=== PATIENT | male | born 1995 | race Caucasian/White ===

== ENCOUNTER 2016-11-16 11:00 | Emergency (ER) | payer BC ==
--- NOTE | 2016-11-16 12:51 | REP ---
5 view left ankle series 11/16/2016 Indication: Trauma Comparison: None Findings: Mild soft tissue swelling overlies the left lateral malleolus. There is no acute fracture or dislocation in the left ankle. There is no visualized joint effusion. Alignment is anatomic. Impression: mild soft tissue swelling overlies lateral malleolus. No ankle fracture or dislocation . Signed by Shante Ortiz MD 11/16/2016 12:43 P
--- NOTE | 2016-11-16 13:03 | EDDOCDS ---
Physician Documentation [facility] Name: Jackson Jaimes Age: 20 yrs Sex: Male : 1995 Arrival Date: 11/16/2016 Time: 11:00 Bed Triage 2 Private MD: Batool Grimes Disposition: 11/16/16 12:50 Discharged to Home/Self Care. Impression: Contusion of right hand, Sprain of unspecified ligament of left ankle. - Condition is Stable. - Discharge Instructions: Elastic Bandage and RICE, Ankle Sprain, Jiro-bd-Lwts, Hand Contusion, Ptgz-dy-Fbhp, Stirrup Ankle Brace, Rwmh-gl-Yajd. - Medication Reconciliation, Local Pharmacy Hours form. - Follow up: Orthopaedics, [facility]; When: Call to arrange an appointment; Reason: Further diagnostic work-up, Recheck today's complaints, Continuance of care. - Problem is new. - Symptoms are unchanged. Historical: - Allergies: no known allergies; - Home Meds: 1. none - PMHx: none; - PSHx: none; - Social history: Smoking status: Patient states former smoker of tobacco. No barriers to communication noted, The patient speaks fluent Romansh, Speaks appropriately for age. - Family history: Not pertinent. - : The pt / caregiver states he / she is not on anticoagulants. Home medication list is obtained from the patient. - Exposure Risk Screening:: None identified. Vital Signs: 11/16 11:06 BP 158 / 89; Pulse 66; Resp 18; Temp 97.2; Pulse Ox 99% ; Weight 99.79 kg / 220 lbs; elp Height 6 ft. 1 in. (185.42 cm); Pain 7/10; 11:06 Body Mass Index 29.03 (99.79 kg, 185.42 cm) elp MDM: 11:13 Hand, Complete Ordered. EDMS 11:13 Ankle, Complete Ordered. EDMS 11:23 Financial registration complete. pm4 12:00 [facility] Payment Agreement was scanned into [employer] and attached to record. pm4 12:52 Pasquale Wrap ordered. btw 12:52 Apply Air Cast to Patient. ordered. btw Signatures: Dispatcher [employer] EDElizabeth Paris RN RN srm Wolfenden, Brandon, PA PA btw Antonio Slater, Reg Reg pm4 The chart was reviewed and I authenticate all verbal orders and agree with the evaluation and treatment provided.Attachments: 12:00 [facility] Payment Agreement pm4 MTDD
--- NOTE | 2016-11-16 13:03 | EDDOCDS ---
Nurse's Notes [facility] Name: Jackson Jaimes Age: 20 yrs Sex: Male : 1995 Arrival Date: 11/16/2016 Time: 11:00 Bed Triage 2 Private MD: Batool Grimes Diagnosis: Contusion of right hand;Sprain of unspecified ligament of left ankle Presentation: 11/16 11:03 Presenting complaint: Patient states: fell last night injuring left ankle and right srm wrist. pain worsened this am. Adult Sepsis Screening: The patient does not have new or worsening altered mentation. Patient's respiratory rate is less than 22. Systolic blood pressure is greater than 100. Patient has a qSOFA score of 0- Negative Sepsis Screen. Suicide/Homicide risk assessment- the patient denies having any suicidal and/or homicidal ideations and does not present with any other emotional, behavioral or mental health complaints. Status: Patient is not a computer service technician or dependent. Transition of care: patient was not received from another setting of care. 11:03 Acuity: NYDIA Level 4 [facility] 11:03 Method Of Arrival: Walkin/Carried/Asstd srm Triage Assessment: 11:04 General: Appears in no apparent distress, Behavior is appropriate for age, cooperative. srm Pain: Pain currently is 8 out of 10 on a pain scale. HIV screening NA for this visit Offered previously. Musculoskeletal: Reports left ankle and right wrist/hand pain. Historical: - Allergies: no known allergies; - Home Meds: 1. none - PMHx: none; - PSHx: none; - Social history: Smoking status: Patient states former smoker of tobacco. No barriers to communication noted, The patient speaks fluent Danish, Speaks appropriately for age. - Family history: Not pertinent. - : The pt / caregiver states he / she is not on anticoagulants. Home medication list is obtained from the patient. - Exposure Risk Screening:: None identified. Screenin:01 Screening information is obtained from the patient. Fall risk: No risks identified. srm Assistance ADL's: requires no assistance with activities of daily living. Abuse/DV Screen: The patient / caregiver reports he/she is: not in a situation that causes fear, pain or injury. Nutritional screening: No deficits noted. Advance Directives: There is no active DNR order. home support is adequate. Assessment: 13:01 General: Appears uncomfortable, Behavior is appropriate for age, cooperative. srm Respiratory: No deficits noted. Musculoskeletal: Circulation, motion, and sensation intact Capillary refill < 3 seconds in bilateral fingers toes. Musculoskeletal: Swelling present in palmar aspect of proximal phalanx of right thumb and Right first web space. Vital Signs: 11:06 BP 158 / 89; Pulse 66; Resp 18; Temp 97.2; Pulse Ox 99% ; Weight 99.79 kg; Height 6 ft. elp 1 in. (185.42 cm); Pain 7/10; 11:06 Body Mass Index 29.03 (99.79 kg, 185.42 cm) el Vitals: 11:06 Log In Time: November 16, 2016 at 10:59. [facility] ED Course: 11:01 Patient visited by Radha Burton PCA. elp 11:01 Batool Grimes is Private Physician. elp 11:01 Patient moved to Waiting elp 11:02 Batool Grimes is Private Physician. elp 11:03 Patient visited by Radha Burton PCA. elp 11:03 Patient moved to Pre RCE srm 11:03 Triage Initiated srm 11:05 [facility] btw 11:05 Bienvenido Travis MD is Attending Physician. btw 11:05 Patient visited by Erik Conley PA. btw 11:05 Patient moved to Triage 2 srm 11:16 Patient moved to TR3 [facility] 12:00 [facility] Payment Agreement was scanned into [employer] and attached to record. pm4 12:49 [facility] btw 12:54 Patient moved to Triage 2 jb5 13:01 The patient / caregiver is instructed regarding the plan of care and ED course. srm Accompanied by Significant Other, Patient has correct armband on for positive identification. 13:01 No IV's were initiated during this patient's visit. No procedures done that require srm assistance. Pasquale wrap to left ankle. Patient has positive distal pulse, brisk capillary refill, and positive sensation after application. Order Results: There are currently no results for this order. Outcome: 12:50 Discharge ordered by Provider. btw 13:01 Discharge Assessment: Patient awake, alert and oriented x 3. No cognitive and/or srm functional deficits noted. Patient verbalized understanding of disposition instructions. patient administered narcotics - no. The following High Risk Discharge criteria are identified: None. Discharged to home ambulatory, with significant other. Condition: stable. Discharge instructions given to patient, Instructed on discharge instructions, follow up and referral plans. Rest, Ice, Compression and Elevation. Demonstrated understanding of instructions, Pt was receptive of discharge instructions/ teaching. No special radiology studies were completed. Property :Personal belongings accompany Pt. 13:03 Patient left the ED. srm Signatures: Elizabeth Corey, RN RN Anahy Orlando, PHARMACOEPIDEMIOLOGIST PHARMACOEPIDEMIOLOGIST jb5 Erik Conley PA PA Elke VacaRN Radha Andre, PHARMACOEPIDEMIOLOGIST PHARMACOEPIDEMIOLOGIST emyp Antonio Slater, Reg Reg pm4 MTDD
--- NOTE | 2016-11-16 13:58 | REP ---
Five view right hand series 04/27 Indication: Trauma Findings: Soft tissue swelling is noted overlying the 5th metacarpo- phalangeal joint. There is no acute fracture, subluxation, or dislocation within the right hand. Visualized portions of the wrist and distal radius and ulna are intact Impression: Soft tissue swelling overlying the 5th metacarpophalangeal joint. No fracture or displacement. Signed by Shante Ortiz MD 11/16/2016 01:48 P
--- NOTE | 2016-11-18 14:04 | EDDOCDS ---
Physician Documentation [facility] Name: Jackson Jaimes Age: 20 yrs Sex: Male : 1995 Arrival Date: 11/16/2016 Time: 11:00 Bed Triage 2 Private MD: Batool Grimes Disposition: 11/16/16 12:50 Discharged to Home/Self Care. Impression: Contusion of right hand, Sprain of unspecified ligament of left ankle. - Condition is Stable. - Discharge Instructions: Elastic Bandage and RICE, Ankle Sprain, Vand-kb-Rolx, Hand Contusion, Ocea-zx-Sghb, Stirrup Ankle Brace, Chrs-dp-Ssdo. - Medication Reconciliation, Local Pharmacy Hours form. - Follow up: Orthopaedics, [facility]; When: Call to arrange an appointment; Reason: Further diagnostic work-up, Recheck today's complaints, Continuance of care. - Problem is new. - Symptoms are unchanged. Historical: - Allergies: no known allergies; - Home Meds: 1. none - PMHx: none; - PSHx: none; - Social history: Smoking status: Patient states former smoker of tobacco. No barriers to communication noted, The patient speaks fluent Hebrew, Speaks appropriately for age. - Family history: Not pertinent. - : The pt / caregiver states he / she is not on anticoagulants. Home medication list is obtained from the patient. - Exposure Risk Screening:: None identified. Vital Signs: 11/16 11:06 BP 158 / 89; Pulse 66; Resp 18; Temp 97.2; Pulse Ox 99% ; Weight 99.79 kg / 220 lbs; elp Height 6 ft. 1 in. (185.42 cm); Pain 7/10; 11:06 Body Mass Index 29.03 (99.79 kg, 185.42 cm) elp MDM: 11:13 Hand, Complete Ordered. EDMS 11:13 Ankle, Complete Ordered. EDMS 11:23 Financial registration complete. pm4 12:00 [facility] Payment Agreement was scanned into [employer] and attached to record. pm4 12:52 Pasquale Wrap ordered. btw 12:52 Apply Air Cast to Patient. ordered. btw 14:50 T-Sheet-- Draft Copy was scanned into [employer] and attached to record. gb Signatures: Dispatcher [employer] Elizabeth Iverson, RN RN [facility] Debib Foley, Reg Reg gb Erik Conley PA PA btw Antonio Slater, Reg Reg pm4 The chart was reviewed and I authenticate all verbal orders and agree with the evaluation and treatment provided.Attachments: 12:00 [facility] Payment Agreement pm4 14:50 T-Sheet-- Draft Copy gb Chart Complete MTDD
--- NOTE | 2016-11-18 14:04 | EDDOCDS ---
Nurse's Notes [facility] Name: Jackson Jaimes Age: 20 yrs Sex: Male : 1995 Arrival Date: 11/16/2016 Time: 11:00 Bed Triage 2 Private MD: Batool Grimes Diagnosis: Contusion of right hand;Sprain of unspecified ligament of left ankle Presentation: 11/16 11:03 Presenting complaint: Patient states: fell last night injuring left ankle and right srm wrist. pain worsened this am. Adult Sepsis Screening: The patient does not have new or worsening altered mentation. Patient's respiratory rate is less than 22. Systolic blood pressure is greater than 100. Patient has a qSOFA score of 0- Negative Sepsis Screen. Suicide/Homicide risk assessment- the patient denies having any suicidal and/or homicidal ideations and does not present with any other emotional, behavioral or mental health complaints. Status: Patient is not a director of tax services or dependent. Transition of care: patient was not received from another setting of care. 11:03 Acuity: NYDIA Level 4 [facility] 11:03 Method Of Arrival: Walkin/Carried/Asstd srm Triage Assessment: 11:04 General: Appears in no apparent distress, Behavior is appropriate for age, cooperative. srm Pain: Pain currently is 8 out of 10 on a pain scale. HIV screening NA for this visit Offered previously. Musculoskeletal: Reports left ankle and right wrist/hand pain. Historical: - Allergies: no known allergies; - Home Meds: 1. none - PMHx: none; - PSHx: none; - Social history: Smoking status: Patient states former smoker of tobacco. No barriers to communication noted, The patient speaks fluent Wolof, Speaks appropriately for age. - Family history: Not pertinent. - : The pt / caregiver states he / she is not on anticoagulants. Home medication list is obtained from the patient. - Exposure Risk Screening:: None identified. Screenin:01 Screening information is obtained from the patient. Fall risk: No risks identified. srm Assistance ADL's: requires no assistance with activities of daily living. Abuse/DV Screen: The patient / caregiver reports he/she is: not in a situation that causes fear, pain or injury. Nutritional screening: No deficits noted. Advance Directives: There is no active DNR order. home support is adequate. Assessment: 13:01 General: Appears uncomfortable, Behavior is appropriate for age, cooperative. srm Respiratory: No deficits noted. Musculoskeletal: Circulation, motion, and sensation intact Capillary refill < 3 seconds in bilateral fingers toes. Musculoskeletal: Swelling present in palmar aspect of proximal phalanx of right thumb and Right first web space. Vital Signs: 11:06 BP 158 / 89; Pulse 66; Resp 18; Temp 97.2; Pulse Ox 99% ; Weight 99.79 kg; Height 6 ft. elp 1 in. (185.42 cm); Pain 7/10; 11:06 Body Mass Index 29.03 (99.79 kg, 185.42 cm) [facility] Vitals: 11:06 Log In Time: November 16, 2016 at 10:59. [facility] ED Course: 11:01 Patient visited by Radha Burton PCA. elp 11:01 Batool Grimes is Private Physician. elp 11:01 Patient moved to Waiting elp 11:02 Batool Grimes is Private Physician. elp 11:03 Patient visited by Radha Burton PCA. elp 11:03 Patient moved to Pre RCE srm 11:03 Triage Initiated srm 11:05 [facility]. btw 11:05 Bienvenido Travis MD is Attending Physician. btw 11:05 Patient visited by Erik Conley PA. btw 11:05 Patient moved to Triage 2 srm 11:16 Patient moved to TR3 [facility] 12:00 [facility] Payment Agreement was scanned into [employer] and attached to record. pm4 12:[facility] btw 12:54 Patient moved to Triage 2 jb5 13:01 The patient / caregiver is instructed regarding the plan of care and ED course. srm Accompanied by Significant Other, Patient has correct armband on for positive identification. 13:01 No IV's were initiated during this patient's visit. No procedures done that require srm assistance. Pasquale wrap to left ankle. Patient has positive distal pulse, brisk capillary refill, and positive sensation after application. 13:18 Ankle, Complete Returned. EDMS 14:01 Hand, Complete Returned. EDMS 14:50 T-Sheet-- Draft Copy was scanned into [employer] and attached to record. gb Order Results: Radiology Order: Hand, Complete Test: Hand, Complete REASON FOR EXAMINATION: Trauma; Five view right hand series 04/27; ; Indication: Trauma; ; Findings: Soft tissue swelling is noted overlying the 5th metacarpo-; phalangeal joint. There is no acute fracture, subluxation, or dislocation within; the right hand. Visualized portions of the wrist and distal radius and ulna are; intact; ; Impression:; ; Soft tissue swelling overlying the 5th metacarpophalangeal joint. No fracture or; displacement.; ; ; Signed by; Shante Ortiz MD 11/16/2016 01:48 P; Radiology Order: Ankle, Complete Test: Ankle, Complete REASON FOR EXAMINATION: Trauma; 5 view left ankle series 11/16/2016; ; Indication: Trauma; ; Comparison: None; ; Findings: Mild soft tissue swelling overlies the left lateral malleolus. There; is no acute fracture or dislocation in the left ankle. There is no visualized; joint effusion. Alignment is anatomic.; ; Impression: mild soft tissue swelling overlies lateral malleolus. No ankle; fracture or dislocation .; ; ; Signed by; Shante Ortiz MD 11/16/2016 12:43 P; Outcome: 12:50 Discharge ordered by Provider. btw 13:01 Discharge Assessment: Patient awake, alert and oriented x 3. No cognitive and/or srm functional deficits noted. Patient verbalized understanding of disposition instructions. patient administered narcotics - no. The following High Risk Discharge criteria are identified: None. Discharged to home ambulatory, with significant other. Condition: stable. Discharge instructions given to patient, Instructed on discharge instructions, follow up and referral plans. Rest, Ice, Compression and Elevation. Demonstrated understanding of instructions, Pt was receptive of discharge instructions/ teaching. No special radiology studies were completed. Property :Personal belongings accompany Pt. 13:03 Patient left the ED. srm Signatures: Dispatcher [employer] EDMS Elizabeth Corey RN RN [facility] Debbi Foley, Reg Reg gb Anahy Baker, PRE K SPECIAL EDUCATION TEACHER PRE K SPECIAL EDUCATION TEACHER jb5 Erik Conley PA PA btw Elke Alvarado RN RN pml Patchen, Erin, PRE K SPECIAL EDUCATION TEACHER PRE K SPECIAL EDUCATION TEACHER elp Antonio Slater, Reg Reg pm4 Chart Complete MTDD
--- NOTE | 2016-11-18 14:04 | EDDOCDS ---
Physician Documentation [facility] Name: Jackson Jaimes Age: 20 yrs Sex: Male : 1995 Arrival Date: 11/16/2016 Time: 11:00 Bed Triage 2 Private MD: Batool Grimes Disposition: 11/16/16 12:50 Discharged to Home/Self Care. Impression: Contusion of right hand, Sprain of unspecified ligament of left ankle. - Condition is Stable. - Discharge Instructions: Elastic Bandage and RICE, Ankle Sprain, Efhv-ka-Ymog, Hand Contusion, Duin-fi-Kjdy, Stirrup Ankle Brace, Ruze-up-Nsgh. - Medication Reconciliation, Local Pharmacy Hours form. - Follow up: Orthopaedics, [facility]; When: Call to arrange an appointment; Reason: Further diagnostic work-up, Recheck today's complaints, Continuance of care. - Problem is new. - Symptoms are unchanged. Historical: - Allergies: no known allergies; - Home Meds: 1. none - PMHx: none; - PSHx: none; - Social history: Smoking status: Patient states former smoker of tobacco. No barriers to communication noted, The patient speaks fluent Upper Sorbian, Speaks appropriately for age. - Family history: Not pertinent. - : The pt / caregiver states he / she is not on anticoagulants. Home medication list is obtained from the patient. - Exposure Risk Screening:: None identified. Vital Signs: 11/16 11:06 BP 158 / 89; Pulse 66; Resp 18; Temp 97.2; Pulse Ox 99% ; Weight 99.79 kg / 220 lbs; elp Height 6 ft. 1 in. (185.42 cm); Pain 7/10; 11:06 Body Mass Index 29.03 (99.79 kg, 185.42 cm) elp MDM: 11:13 Hand, Complete Ordered. EDMS 11:13 Ankle, Complete Ordered. EDMS 11:23 Financial registration complete. pm4 12:00 [facility] Payment Agreement was scanned into [employer] and attached to record. pm4 12:52 Pasquale Wrap ordered. btw 12:52 Apply Air Cast to Patient. ordered. btw 14:50 T-Sheet-- Draft Copy was scanned into [employer] and attached to record. gb Signatures: Dispatcher [employer] Elizabeth Iverson, RN RN [facility] Debbi Foley, Reg Reg gb Erik Conley PA PA btw Antonio Slater, Reg Reg pm4 The chart was reviewed and I authenticate all verbal orders and agree with the evaluation and treatment provided.Attachments: 12:00 [facility] Payment Agreement pm4 14:50 T-Sheet-- Draft Copy gb Chart Complete MTDD
== END 2016-11-16 13:03 | disposition home or self-care (01) ==
LOC: M ED 11:00
DX: S60.221A Contusion of right hand, initial encounter (principal); S93.402A Sprain of unspecified ligament of left ankle, initial encounter; W00.9XXA Unspecified fall due to ice and snow, initial encounter; Y92.019 Unspecified place in single-family (private) house as the place of occurrence of the external cause; Y93.9 Activity, unspecified; Y99.9 Unspecified external cause status; Z87.891 Personal history of nicotine dependence

== ENCOUNTER 2016-12-06 16:36 | Emergency (ER) | payer BC ==
[2016-12-06] MEDS ORDERED: traMADol 50 MG TAB As Ordered ONE (18:17)
[2016-12-06] MEDS ORDERED: METHOCARBAMOL 500 MG TAB As Ordered ONE (18:17)
--- NOTE | 2016-12-06 19:17 | REP ---
LUMBAR SPINE, FIVE VIEWS: HISTORY: Back pain. There is partial lumbarization of the S1 vertebral body. There is no acute fracture. The L4-5 and L5-S1 intervertebral discs are decreased in height consistent with disc degeneration. The facet joints are normal in appearance. There are 2 mm of retrolisthesis of S1 on S2. IMPRESSION: Degenerative change as described above. Signed by Edwin Moncada MD 12/06/2016 07:18 P
--- NOTE | 2016-12-06 20:01 | EDDOCDS ---
Nurse's Notes [facility] Name: Jackson Jaimes Age: 20 yrs Sex: Male : 1995 Arrival Date: 12/06/2016 Time: 16:36 Bed PR Private MD: Batool Grimes Diagnosis: Low back pain Presentation: 12/06 17:06 Presenting complaint: Patient states: right lower back pain radiates into right buttock kpj since this morning. Denies abdominal pain. Acute neurological deficits are not present. Mechanism of Injury: No Mechanism of Injury. Adult Sepsis Screening: The patient does not have new or worsening altered mentation. Patient's respiratory rate is less than 22. Systolic blood pressure is greater than 100. Patient has a qSOFA score of 0- Negative Sepsis Screen. Suicide/Homicide risk assessment- the patient denies having any suicidal and/or homicidal ideations and does not present with any other emotional, behavioral or mental health complaints. 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 Transition of care: patient was not received from another setting of care. 17:06 Acuity: NYDIA Level 3 [facility] 17:06 Method Of Arrival: Walkin/Carried/Asstd [facility] Triage Assessment: 17:09 General: Appears uncomfortable, Behavior is appropriate for age, pleasant. Pain: kpj Location: right low back Pain currently is 6 out of 10 on a pain scale. Pain radiates to right gluteus mike. Pt Declines HIV testing. Neurological: Level of Consciousness is awake, alert, Oriented to person, place, time. Respiratory: Airway is patent Respiratory effort is even, unlabored, Respiratory pattern is regular, symmetrical. GI: Denies nausea, vomiting, pain. : Denies burning with urination, discharge. Derm: Skin is pink, warm & dry. Musculoskeletal: Reports pain in right low back radiation to right gluteus mike Pain is 6 out of 10 on a pain scale. Historical: - Allergies: No known drug Allergies; - Home Meds: 1. none - PMHx: Hypertension; - PSHx: Tubes in ears; - Social history: Smoking status: Patient states former smoker of tobacco. No barriers to communication noted, The patient speaks fluent Czech. - Family history: Not pertinent. - : The pt / caregiver states he / she is not on anticoagulants. Home medication list is obtained from the patient. - Exposure Risk Screening:: None identified. Screenin:58 Screening information is obtained from the patient. Fall risk: No risks identified. lf1 Assistance ADL's: requires no assistance with activities of daily living. Abuse/DV Screen: The patient / caregiver reports he/she is: not in a situation that causes fear, pain or injury. Nutritional screening: No deficits noted. Advance Directives: Currently, there is no health care proxy. home support is adequate. Assessment: 19:58 Adult Sepsis Screening: The patient does not have new or worsening altered mentation. lf1 Patient's respiratory rate is less than 22. Systolic blood pressure is greater than 100. Patient has a qSOFA score of 0- Negative Sepsis Screen. General: Appears in no apparent distress, comfortable, Behavior is cooperative. General: First patient contact. Pain: Location: right low back Pain currently is 2 out of 10 on a pain scale. Neurological: Level of Consciousness is awake, alert, Oriented to person, place, time. EENT: No deficits noted. Respiratory: Respiratory effort is even, unlabored. Derm: Skin is normal. Musculoskeletal: Reports pain in right low back. Vital Signs: 16:37 BP 163 / 92; Pulse 97; Resp 18; Temp 97.6(O); Pulse Ox 97% on R/A; Weight 99.79 kg (R); elp Height 6 ft. 1 in. (185.42 cm) (R); Pain 7/10; 19:21 BP 167 / 80 LA Sitting (auto/reg); Pulse 99 MON; Resp 20 S; Temp 98.4(TE); Pulse Ox cln 100% on R/A; Pain 2/10; 16:37 Body Mass Index 29.03 (99.79 kg, 185.42 cm) [facility] Vitals: 16:37 Log In Time: December 06, 2016 at 16:35. [facility] ED Course: 16:37 Patient visited by Radha Burton PCA. elp 16:37 Batool Grimes is Private Physician. elp 16:37 Patient moved to Waiting elp 16:38 Patient visited by Radha Burton PCA. elp 16:38 Patient moved to Pre RCE elp 17:08 Triage Initiated [facility] 17:34 Patient moved to Triage 2 [facility] 17:35 Shayne Thomas [facility]-C is [facility] ck7 17:35 Claire Montez MD is Attending Physician. ck7 17:35 Patient visited by Shayne Thomas RPA-C. ck7 17:49 Patient visited by Shayne Thomas RPA-C. ck7 18:20 Patient visited by Shayne Thomas RPA-C. ck7 18:22 Patient moved to TR1 [facility] 18:36 [facility] Payment Agreement was scanned into [employer] and attached to record. ks16 18:51 Patient visited by Shayne Thomas RPA-C. ck7 18:54 Batool Grimes is Referral Physician. ck7 19:15 Patient moved to PR1 / 25 [facility] 19:22 Patient visited by Laine Monahan PCA. cln 19:58 The patient / caregiver is instructed regarding the plan of care and ED course. 1 19:58 No IV's were initiated during this patient's visit. No procedures done that require lf1 assistance. Administered Medications: 18:21 Drug: traMADol 50 mg [tramadol 50 mg tablet (1 tabs)] Route: PO; [facility] 18:21 Drug: Methocarbamol 1 grams [methocarbamol 500 mg tablet (2 tabs)] Route: PO; [facility] Point of Care Testing: Urine Dip: 18:08 pH: 7; ; Specific [place]: 1.050; Ketones: Negative; Glucose: Negative; Protein: Trace; dwg Leukocytes: Negative; Nitrite: Negative ; Blood: Non Hemolyzed Trace; Bilirubin: Negative ; Urobilinogen: Normal Ranges: Order Results: There are currently no results for this order. Outcome: 18:54 Discharge ordered by Provider. ck7 19:58 Discharge Assessment: Patient awake, alert and oriented x 3. No cognitive and/or lf1 functional deficits noted. Patient verbalized understanding of disposition instructions. Patient awake and alert. Oriented to person, place and time. Patient verbalized understanding of disposition instructions. Patient has no functional deficits. patient administered narcotics - no. The following High Risk Discharge criteria are identified: None. Discharged to home ambulatory, with family. Condition: improved. Discharge instructions given to patient, Instructed on discharge instructions, follow up and referral plans. medication usage, no driving heavy equipment, Demonstrated understanding of instructions, medications, Pt was receptive of discharge instructions/ teaching. Prescriptions given X 2, Work note provided to patient. No special radiology studies were completed. Property :Personal belongings accompany Pt. 20:00 Patient left the ED. lf1 Signatures: Mack Cannon, RN RN Susana Dennis RN RN Yesi ArchuletaRN RN lf1 Rosey DesirRN RN [facility] Shayne Thomas, RPA-C RPA-Cck7 Micheal, Radha, COAL DUMPING EQUIPMENT OPERATOR COAL DUMPING EQUIPMENT OPERATOR elp Patricia Miranda, Reg Reg ks16 Monahan, Crystal, COAL DUMPING EQUIPMENT OPERATOR COAL DUMPING EQUIPMENT OPERATOR cln MTDD
--- NOTE | 2016-12-06 20:01 | EDDOCDS ---
Physician Documentation [facility] Name: Jackson Jaimes Age: 20 yrs Sex: Male : 1995 Arrival Date: 12/06/2016 Time: 16:36 Bed PR Private MD: Batool Grimes Disposition: 12/06/16 18:54 Discharged to Home/Self Care. Impression: Low back pain. - Condition is Stable. - Discharge Instructions: Back Pain, Adult. - Prescriptions for Robaxin 500 mg Oral Tablet - take 2 tablet by ORAL route every 6 hours As needed; 40 tablet. Tramadol 50 mg Oral Tablet - take 1 tablet by ORAL route 4 times per day As needed MDD: 4 tabs; 20 tablet. - Medication Reconciliation, Local Pharmacy Hours form. - Follow up: Batool Grimes; When: 1 - 2 days; Reason: Recheck today's complaints, Continuance of care. - Problem is new. - Symptoms have improved. - Notes: USE MEDICATIONS INSTRUCTED, FOLLOW UP WITH YOUR DOCTOR, RETURN TO THE ER IF THE SYMPTOMS WORSEN OR BECOME CONCERNING Historical: - Allergies: No known drug Allergies; - Home Meds: 1. none - PMHx: Hypertension; - PSHx: Tubes in ears; - Social history: Smoking status: Patient states former smoker of tobacco. No barriers to communication noted, The patient speaks fluent French. - Family history: Not pertinent. - : The pt / caregiver states he / she is not on anticoagulants. Home medication list is obtained from the patient. - Exposure Risk Screening:: None identified. Vital Signs: 12/06 16:37 BP 163 / 92; Pulse 97; Resp 18; Temp 97.6(O); Pulse Ox 97% on R/A; Weight 99.79 kg / elp 220 lbs (R); Height 6 ft. 1 in. (185.42 cm) (R); Pain 7/10; 19:21 BP 167 / 80 LA Sitting (auto/reg); Pulse 99 MON; Resp 20 S; Temp 98.4(TE); Pulse Ox cln 100% on R/A; Pain 2/10; 16:37 Body Mass Index 29.03 (99.79 kg, 185.42 cm) elp MDM: 17:57 Urine Dip ordered. ck7 18:11 traMADol 50 mg PO once ordered. ck7 18:11 Methocarbamol 1 grams PO once ordered. ck7 18:13 Spine. Lumbosacral, Complete Ordered. EDKS 18:35 Financial registration complete. ks16 18:36 [facility] Payment Agreement was scanned into [employer] and attached to record. ks16 Point of Care Testing: Urine Dip: 18:08 pH: 7; ; Specific [place]: 1.050; Ketones: Negative; Glucose: Negative; Protein: Trace; dwg Leukocytes: Negative; Nitrite: Negative ; Blood: Non Hemolyzed Trace; Bilirubin: Negative ; Urobilinogen: Normal Ranges: Administered Medications: 18:21 Drug: traMADol 50 mg [tramadol 50 mg tablet (1 tabs)] Route: PO; [facility] 18:21 Drug: Methocarbamol 1 grams [methocarbamol 500 mg tablet (2 tabs)] Route: PO; [facility] Signatures: Dispatcher [employer] EDKS Susana Roman RN RN Yesi ArchuletaRN RN lf1 Shayne Thomas, RPA-C RPA-Cck7 Patricia Miranda, Reg Reg ks16 Rosey Desir RN [facility] The chart was reviewed and I authenticate all verbal orders and agree with the evaluation and treatment provided.Attachments: 18:36 [facility] Payment Agreement ks16 MTDD
--- NOTE | 2016-12-08 21:01 | EDDOCDS ---
Nurse's Notes [facility] Name: Jackson Jaimes Age: 20 yrs Sex: Male : 1995 Arrival Date: 12/06/2016 Time: 16:36 Bed PR Private MD: Batool Grimes Diagnosis: Low back pain Presentation: 12/06 17:06 Presenting complaint: Patient states: right lower back pain radiates into right buttock kpj since this morning. Denies abdominal pain. Acute neurological deficits are not present. Mechanism of Injury: No Mechanism of Injury. Adult Sepsis Screening: The patient does not have new or worsening altered mentation. Patient's respiratory rate is less than 22. Systolic blood pressure is greater than 100. Patient has a qSOFA score of 0- Negative Sepsis Screen. Suicide/Homicide risk assessment- the patient denies having any suicidal and/or homicidal ideations and does not present with any other emotional, behavioral or mental health complaints. 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 Transition of care: patient was not received from another setting of care. 17:06 Acuity: NYDIA Level 3 [facility] 17:06 Method Of Arrival: Walkin/Carried/Asstd [facility] Triage Assessment: 17:09 General: Appears uncomfortable, Behavior is appropriate for age, pleasant. Pain: kpj Location: right low back Pain currently is 6 out of 10 on a pain scale. Pain radiates to right gluteus mike. Pt Declines HIV testing. Neurological: Level of Consciousness is awake, alert, Oriented to person, place, time. Respiratory: Airway is patent Respiratory effort is even, unlabored, Respiratory pattern is regular, symmetrical. GI: Denies nausea, vomiting, pain. : Denies burning with urination, discharge. Derm: Skin is pink, warm & dry. Musculoskeletal: Reports pain in right low back radiation to right gluteus mike Pain is 6 out of 10 on a pain scale. Historical: - Allergies: No known drug Allergies; - Home Meds: 1. none - PMHx: Hypertension; - PSHx: Tubes in ears; - Social history: Smoking status: Patient states former smoker of tobacco. No barriers to communication noted, The patient speaks fluent Swedish. - Family history: Not pertinent. - : The pt / caregiver states he / she is not on anticoagulants. Home medication list is obtained from the patient. - Exposure Risk Screening:: None identified. Screenin:58 Screening information is obtained from the patient. Fall risk: No risks identified. lf1 Assistance ADL's: requires no assistance with activities of daily living. Abuse/DV Screen: The patient / caregiver reports he/she is: not in a situation that causes fear, pain or injury. Nutritional screening: No deficits noted. Advance Directives: Currently, there is no health care proxy. home support is adequate. Assessment: 19:58 Adult Sepsis Screening: The patient does not have new or worsening altered mentation. lf1 Patient's respiratory rate is less than 22. Systolic blood pressure is greater than 100. Patient has a qSOFA score of 0- Negative Sepsis Screen. General: Appears in no apparent distress, comfortable, Behavior is cooperative. General: First patient contact. Pain: Location: right low back Pain currently is 2 out of 10 on a pain scale. Neurological: Level of Consciousness is awake, alert, Oriented to person, place, time. EENT: No deficits noted. Respiratory: Respiratory effort is even, unlabored. Derm: Skin is normal. Musculoskeletal: Reports pain in right low back. Vital Signs: 16:37 BP 163 / 92; Pulse 97; Resp 18; Temp 97.6(O); Pulse Ox 97% on R/A; Weight 99.79 kg (R); elp Height 6 ft. 1 in. (185.42 cm) (R); Pain 7/10; 19:21 BP 167 / 80 LA Sitting (auto/reg); Pulse 99 MON; Resp 20 S; Temp 98.4(TE); Pulse Ox cln 100% on R/A; Pain 2/10; 16:37 Body Mass Index 29.03 (99.79 kg, 185.42 cm) [facility] Vitals: 16:37 Log In Time: December 06, 2016 at 16:35. [facility] ED Course: 16:37 Patient visited by Radha Burton PCA. elp 16:37 Batool Grimes is Private Physician. elp 16:37 Patient moved to Waiting elp 16:38 Patient visited by Radha Burton PCA. elp 16:38 Patient moved to Pre RCE elp 17:08 Triage Initiated [facility] 17:34 Patient moved to Triage 2 [facility] 17:35 Shayne Thomas RPA-C [facility]. ck7 17:35 Claire Montez MD is Attending Physician. ck7 17:35 Patient visited by Shayne Thomas RPA-C. ck7 17:49 Patient visited by Shayne Thomas RPA-C. ck7 18:20 Patient visited by Shayne Thomas RPA-C. ck7 18:22 Patient moved to TR1 [facility] 18:36 [facility] Payment Agreement was scanned into [employer] and attached to record. ks16 18:51 Patient visited by Shayne Thomas RPA-C. ck7 18:54 Batool Grimes is Referral Physician. ck7 19:15 Patient moved to PR1 / 25 [facility] 19:22 Patient visited by Laine Monahan PCA. cln 19:58 The patient / caregiver is instructed regarding the plan of care and ED course. lf1 19:58 No IV's were initiated during this patient's visit. No procedures done that require lf1 assistance. 20:09 Spine. Lumbosacral, Complete Returned. EDMS 12/07 10:50 T-Sheet-- Draft Copy was scanned into [employer] and attached to record. gb Administered Medications: 12/06 18:21 Drug: traMADol 50 mg [tramadol 50 mg tablet (1 tabs)] Route: PO; [facility] 18:21 Drug: Methocarbamol 1 grams [methocarbamol 500 mg tablet (2 tabs)] Route: PO; [facility] Point of Care Testing: Urine Dip: 18:08 pH: 7; ; Specific [place]: 1.050; Ketones: Negative; Glucose: Negative; Protein: Trace; dwg Leukocytes: Negative; Nitrite: Negative ; Blood: Non Hemolyzed Trace; Bilirubin: Negative ; Urobilinogen: Normal Ranges: Order Results: Radiology Order: Spine. Lumbosacral, Complete Test: Spine. Lumbosacral, Complete REASON FOR EXAMINATION: LOW BACK PAIN; LUMBAR SPINE, FIVE VIEWS:; ; HISTORY: Back pain.; ; There is partial lumbarization of the S1 vertebral body. There is no acute; fracture. The L4-5 and L5-S1 intervertebral discs are decreased in height; consistent with disc degeneration. The facet joints are normal in appearance.; There are 2 mm of retrolisthesis of S1 on S2.; ; IMPRESSION:; ; Degenerative change as described above.; ; ; Signed by; Edwin Moncada MD 12/06/2016 07:18 P; Outcome: 18:54 Discharge ordered by Provider. ck7 19:58 Discharge Assessment: Patient awake, alert and oriented x 3. No cognitive and/or lf1 functional deficits noted. Patient verbalized understanding of disposition instructions. Patient awake and alert. Oriented to person, place and time. Patient verbalized understanding of disposition instructions. Patient has no functional deficits. patient administered narcotics - no. The following High Risk Discharge criteria are identified: None. Discharged to home ambulatory, with family. Condition: improved. Discharge instructions given to patient, Instructed on discharge instructions, follow up and referral plans. medication usage, no driving heavy equipment, Demonstrated understanding of instructions, medications, Pt was receptive of discharge instructions/ teaching. Prescriptions given X 2, Work note provided to patient. No special radiology studies were completed. Property :Personal belongings accompany Pt. 20:00 Patient left the ED. lf1 Signatures: Dispatcher [employer] EDMS Mack Cannon, RN RN Susana Dennis RN RN Debbi Burgos, Reg Reg gb Yesi Nagy,RN RN lf1 Rosey Desir,RN RN Shayne Alegre, RPA-C RPA-Cck7 Radha Burton, INTERNAL CONTROL ANALYST INTERNAL CONTROL ANALYST elp Patricia Miranda, Reg Reg ks16 Laine Monahan, INTERNAL CONTROL ANALYST INTERNAL CONTROL ANALYST cln Chart Complete MTDD
--- NOTE | 2016-12-08 21:01 | EDDOCDS ---
Physician Documentation [facility] Name: Jackson Jaimes Age: 20 yrs Sex: Male : 1995 Arrival Date: 12/06/2016 Time: 16:36 Bed PR Private MD: Batool Grimes Disposition: 12/06/16 18:54 Discharged to Home/Self Care. Impression: Low back pain. - Condition is Stable. - Discharge Instructions: Back Pain, Adult. - Prescriptions for Robaxin 500 mg Oral Tablet - take 2 tablet by ORAL route every 6 hours As needed; 40 tablet. Tramadol 50 mg Oral Tablet - take 1 tablet by ORAL route 4 times per day As needed MDD: 4 tabs; 20 tablet. - Medication Reconciliation, Local Pharmacy Hours form. - Follow up: Batool Grimes; When: 1 - 2 days; Reason: Recheck today's complaints, Continuance of care. - Problem is new. - Symptoms have improved. - Notes: USE MEDICATIONS INSTRUCTED, FOLLOW UP WITH YOUR DOCTOR, RETURN TO THE ER IF THE SYMPTOMS WORSEN OR BECOME CONCERNING Historical: - Allergies: No known drug Allergies; - Home Meds: 1. none - PMHx: Hypertension; - PSHx: Tubes in ears; - Social history: Smoking status: Patient states former smoker of tobacco. No barriers to communication noted, The patient speaks fluent Latvian. - Family history: Not pertinent. - : The pt / caregiver states he / she is not on anticoagulants. Home medication list is obtained from the patient. - Exposure Risk Screening:: None identified. Vital Signs: 12/06 16:37 BP 163 / 92; Pulse 97; Resp 18; Temp 97.6(O); Pulse Ox 97% on R/A; Weight 99.79 kg / elp 220 lbs (R); Height 6 ft. 1 in. (185.42 cm) (R); Pain 7/10; 19:21 BP 167 / 80 LA Sitting (auto/reg); Pulse 99 MON; Resp 20 S; Temp 98.4(TE); Pulse Ox cln 100% on R/A; Pain 2/10; 16:37 Body Mass Index 29.03 (99.79 kg, 185.42 cm) elp MDM: 17:57 Urine Dip ordered. ck7 18:11 traMADol 50 mg PO once ordered. ck7 18:11 Methocarbamol 1 grams PO once ordered. ck7 18:13 Spine. Lumbosacral, Complete Ordered. EDMI 18:35 Financial registration complete. [facility] 18:36 [facility] Payment Agreement was scanned into [employer] and attached to record. 12/07 10:50 T-Sheet-- Draft Copy was scanned into [employer] and attached to record. Point of Care Testing: Urine Dip: 12/06 18:08 pH: 7; ; Specific [place]: 1.050; Ketones: Negative; Glucose: Negative; Protein: Trace; dwg Leukocytes: Negative; Nitrite: Negative ; Blood: Non Hemolyzed Trace; Bilirubin: Negative ; Urobilinogen: Normal Ranges: Administered Medications: 18:21 Drug: traMADol 50 mg [tramadol 50 mg tablet (1 tabs)] Route: PO; [facility] 18:21 Drug: Methocarbamol 1 grams [methocarbamol 500 mg tablet (2 tabs)] Route: PO; [facility] Signatures: Dispatcher [employer] EDMI Susana Roman, RN RN Debbi Burgos, Reg Reg gb Yesi Nagy,RN RN lf1 Shayne Thomas, RPA-C RPA-Cck7 Patricia Miranda, Reg Reg ks16 Rosey Desir RN [facility] The chart was reviewed and I authenticate all verbal orders and agree with the evaluation and treatment provided.Attachments: 18:36 [facility] Payment Agreement 12/07 10:50 T-Sheet-- Draft Copy Chart Complete MTDD
--- NOTE | 2016-12-08 21:01 | EDDOCDS ---
Physician Documentation [facility] Name: Jackson Jaimes Age: 20 yrs Sex: Male : 1995 Arrival Date: 12/06/2016 Time: 16:36 Bed PR Private MD: Batool Grimes Disposition: 12/06/16 18:54 Discharged to Home/Self Care. Impression: Low back pain. - Condition is Stable. - Discharge Instructions: Back Pain, Adult. - Prescriptions for Robaxin 500 mg Oral Tablet - take 2 tablet by ORAL route every 6 hours As needed; 40 tablet. Tramadol 50 mg Oral Tablet - take 1 tablet by ORAL route 4 times per day As needed MDD: 4 tabs; 20 tablet. - Medication Reconciliation, Local Pharmacy Hours form. - Follow up: Batool Grimes; When: 1 - 2 days; Reason: Recheck today's complaints, Continuance of care. - Problem is new. - Symptoms have improved. - Notes: USE MEDICATIONS INSTRUCTED, FOLLOW UP WITH YOUR DOCTOR, RETURN TO THE ER IF THE SYMPTOMS WORSEN OR BECOME CONCERNING Historical: - Allergies: No known drug Allergies; - Home Meds: 1. none - PMHx: Hypertension; - PSHx: Tubes in ears; - Social history: Smoking status: Patient states former smoker of tobacco. No barriers to communication noted, The patient speaks fluent Spanish. - Family history: Not pertinent. - : The pt / caregiver states he / she is not on anticoagulants. Home medication list is obtained from the patient. - Exposure Risk Screening:: None identified. Vital Signs: 12/06 16:37 BP 163 / 92; Pulse 97; Resp 18; Temp 97.6(O); Pulse Ox 97% on R/A; Weight 99.79 kg / elp 220 lbs (R); Height 6 ft. 1 in. (185.42 cm) (R); Pain 7/10; 19:21 BP 167 / 80 LA Sitting (auto/reg); Pulse 99 MON; Resp 20 S; Temp 98.4(TE); Pulse Ox cln 100% on R/A; Pain 2/10; 16:37 Body Mass Index 29.03 (99.79 kg, 185.42 cm) elp MDM: 17:57 Urine Dip ordered. ck7 18:11 traMADol 50 mg PO once ordered. ck7 18:11 Methocarbamol 1 grams PO once ordered. ck7 18:13 Spine. Lumbosacral, Complete Ordered. EDOH 18:35 Financial registration complete. [facility] 18:36 REPLACED BY [facility] Payment Agreement was scanned into [employer] and attached to record. 12/07 10:50 T-Sheet-- Draft Copy was scanned into [email or web address] and attached to record. Point of Care Testing: Urine Dip: 12/06 18:08 pH: 7; ; Specific [place]: 1.050; Ketones: Negative; Glucose: Negative; Protein: Trace; dwg Leukocytes: Negative; Nitrite: Negative ; Blood: Non Hemolyzed Trace; Bilirubin: Negative ; Urobilinogen: Normal Ranges: Administered Medications: 18:21 Drug: traMADol 50 mg [tramadol 50 mg tablet (1 tabs)] Route: PO; [facility] 18:21 Drug: Methocarbamol 1 grams [methocarbamol 500 mg tablet (2 tabs)] Route: PO; [facility] Signatures: Dispatcher [employer] EDOH Susana Roman, RN RN Debbi Burgos, Reg Reg gb Yesi Nagy,RN RN lf1 Shayne Thomas, RPA-C RPA-Cck7 Patricia Miranda, Reg Reg ks16 Rosey Desir RN [facility] The chart was reviewed and I authenticate all verbal orders and agree with the evaluation and treatment provided.Attachments: 18:36 REPLACED BY [facility] Payment Agreement 12/07 10:50 T-Sheet-- Draft Copy Chart Complete MTDD
== END 2016-12-06 20:00 | disposition home or self-care (01) ==
LOC: M ED 16:36
DX: M54.5 Low back pain (principal); I10 Essential (primary) hypertension

== ENCOUNTER → 2017-01-23 | Outpatient (CLI) | payer BC ==
[2017-01-23 10:12] LABS: MEAN CORPUSCULAR HGB CONC 35.6 g/dl (32.0-36.5); MEAN CORPUSCULAR VOLUME 89.7 fl (80.0-96.0); RED CELL DISTRIBUTION WIDTH 12.1 % (11.5-14.5)
[2017-01-23 10:36] LABS: ALBUMIN 4.1 GM/DL (3.2-5.2); ALBUMIN/GLOBULIN RATIO 1.24 (1.00-1.93); ALKALINE PHOSPHATASE 79 U/L (45-117); ALT/SGPT 183 U/L (12-78); ANION GAP 9 MEQ/L (8-16); AST/SGOT 69 U/L (15-37); BILIRUBIN,TOTAL 0.6 MG/DL (0.2-1.0); BLOOD UREA NITROGEN 12 MG/DL (7-18); CALCIUM LEVEL 9.4 MG/DL (8.5-10.1); CARBON DIOXIDE LEVEL 31 MEQ/L (21-32); CHLORIDE LEVEL 101 MEQ/L (98-107); CHOLESTEROL LEVEL 209 MG/DL (<200); CREATININE FOR GFR 0.96 MG/DL (0.70-1.30); GLOMERULAR FILTRATION RATE > 60.0 (>60); GLUCOSE, FASTING 120 MG/DL (70-105); POTASSIUM SERUM 4.2 MEQ/L (3.5-5.1); SODIUM LEVEL 141 MEQ/L (136-145); THYROXINE (T4) 7.3 UG/DL (4.5-12.0); TOTAL PROTEIN 7.4 GM/DL (6.4-8.2); TRIGLYCERIDES LEVEL 489 MG/DL (<150)
--- NOTE | 2017-01-23 10:58 | ECGEPIP ---
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
--- NOTE | 2017-01-24 04:06 | REP ---
Clinical: Hypertension and chest pain . Comparison: 07/21/2016 . Technique: PA and lateral. Findings: The mediastinum and cardiac silhouette are normal. The lung nguyen are clear and without acute consolidation, effusion, or pneumothorax. The skeletal structures are intact and normal. Impression: 1. No acute cardiopulmonary process. Signed by Jamie Pacheco MD 01/24/2017 03:58 A
== END ==
LOC: M LAB 09:18
PROVIDERS: ATTEND Family Medicine
DX: I10 Essential (primary) hypertension (principal)

== ENCOUNTER → 2017-12-02 | Outpatient (REF) | payer BC | LOC: M LAB REF 15:32 | DX: J02.9 Acute pharyngitis, unspecified (principal) ==

== ENCOUNTER → 2019-01-29 | Outpatient (REF) | payer BC ==
[2019-01-29 12:26] LABS: INFLUENZA A AMPLIFICATION POSITIVE (NEGATIVE); INFLUENZA B AMPLIFICATION NEGATIVE (NEGATIVE)
== END ==
LOC: M LAB REF 11:16
PROVIDERS: ATTEND Physician Assistant
DX: J11.1 Influenza due to unidentified influenza virus with other respiratory manifestations (principal)

== ENCOUNTER 2019-07-24 03:35 | Inpatient (IN) | payer BC ==
[~2019-07-24] VITALS: Ht 185.4 cm; Wt 109.1 kg
[2019-07-24] MEDS ORDERED: MIRA3350 PO (03:40)
[2019-07-24] MEDS ORDERED: ONDANSETRON 4MG/2ML VIAL (J2405) IV ONE (04:30)
[2019-07-24] MEDS ORDERED: NS 1,000 ML IV ONE (04:30)
[2019-07-24] MEDS ORDERED: KETOROLAC 30 MG/ML VIAL (J1885) IV ONE (04:30)
[2019-07-24] MEDS ORDERED: ISOVUE-370 76% 100ML VIAL (Q9967) As Ordered ONE (05:16)
[2019-07-24 06:04] LABS: HEMATOCRIT 45.5 % (42.0-52.0); HEMOGLOBIN 16.5 g/dl (13.5-17.5); MEAN CORPUSCULAR HEMOGLOBIN 33.1 pg (27.0-33.0); MEAN CORPUSCULAR HGB CONC 36.3 g/dl (32.0-36.5); MEAN CORPUSCULAR VOLUME 91.2 fl (80.0-96.0); RED BLOOD COUNT 4.99 10^6/uL (4.30-6.10); WHITE BLOOD COUNT 15.6 10^3/uL (4.0-10.0)
[2019-07-24 06:05] LABS: BASO % 0.6 % (0.0-1.0); EOS % 0.8 % (0.0-3.0); LYMPH % 12.3 % (24.0-44.0); MONO % 8.3 % (0.0-5.0); NEUTROPHILS % 77.5 % (36.0-66.0); PLATELET COUNT, AUTOMATED 208 10^3/uL (150-450)
[2019-07-24 06:06] LABS: BASO # 0.1 10^3/uL (0.0-0.2); EOS # 0.1 10^3/uL (0.0-0.5); LYMPH # 1.9 10^3/uL (1.5-5.0); MONO # 1.3 10^3/uL (0.0-0.8); NEUTROPHILS # 12.1 10^3/uL (1.5-8.5)
[2019-07-24 06:19] LABS: ALT/SGPT 97 U/L (12-78); BILIRUBIN,DIRECT 0.2 MG/DL (0.0-0.2); LIPASE 2927 U/L (73-393); TOTAL PROTEIN 7.5 GM/DL (6.4-8.2)
--- NOTE | 2019-07-24 06:28 | REPVR ---
EXAM: CT Abdomen and Pelvis With Contrast EXAM DATE/TIME: 07/24/2019 4:17 AM CLINICAL HISTORY: 23 years old, male; Abdominal pain; Generalized; Additional info: Generalized abd pain TECHNIQUE: Imaging protocol: Computed tomography of the abdomen and pelvis with intravenous contrast. Radiation optimization: All CT scans at this facility use at least one of these dose optimization techniques: automated exposure control; mA and/or kV adjustment per patient size (includes targeted exams where dose is matched to clinical indication); or iterative reconstruction. Contrast material: ISO; Contrast volume: 100 ml; Contrast route: AC; COMPARISON: No relevant prior studies available. FINDINGS: Liver: The liver is diffusely hypoattenuated. Gallbladder and bile ducts: There is no biliary ductal dilatation. Pancreas: There is pancreatic head heterogeneity with marked elizabet-pancreatic head stranding and edema extending inferiorly along the retroperitoneal planes. There is no pancreatic ductal dilatation. Spleen: Normal. No splenomegaly. Adrenals: Normal. No mass. Kidneys and ureters: Normal. No hydronephrosis. Stomach and bowel: Unremarkable. No obstruction. No mucosal thickening. Appendix: No evidence of appendicitis. Intraperitoneal space: Unremarkable. No free air. No significant fluid collection. Vasculature: Unremarkable. No abdominal aortic aneurysm. Lymph nodes: Unremarkable. No enlarged lymph nodes. Bladder: Unremarkable as visualized. Reproductive: Unremarkable as visualized. Bones/joints: Unremarkable. No acute fracture. Soft tissues: Unremarkable. IMPRESSION: 1. Pancreatic head pancreatitis with no CT evidence of tissue necrosis, venous thromboses, pseudoaneurysm formation or pseudocyst formation at this time. 2. Fatty infiltration of the liver. Electronically signed by: Quang Baltazar On 07/24/2019 06:27:46 AM
[2019-07-24] MEDS ORDERED: ONDANSETRON 4MG/2ML VIAL (J2405) IV PRN (08:00)
[2019-07-24] MEDS: NS 1,000 ML IV SCH ×3 (08:11→16:32)
[2019-07-24] MEDS: NORCO, ANEXSIA 5/325MG TABLET (HYDROcodone/ACETAMINOPHEN) PO PRN ×3 (08:14→20:23)
[2019-07-24] MEDS: ENOXAPARIN 40 MG/0.4 ML SYRINGE (J1650) SC SCH (09:00)
--- NOTE | 2019-07-24 09:13 | REP ---
Right upper quadrant sonography: History: Pancreatitis, rule out cholelithiasis. Comparison study: Comparison is made with CT study of the abdomen from earlier this date. Findings: Scanning through the right upper quadrant of the abdomen demonstrates a normal sized, thin-walled gallbladder without evidence of stone or polyp. Common bile duct is normal measuring 0.3 cm in greatest diameter. No focal liver lesion is seen. Liver size is normal. No pancreatic abnormality is observed. No right renal abnormality is seen. There is no evidence of ascites. The right kidney measures 12.2 x 4.6 x 4.6 cm. Impression: Negative right upper quadrant sonography. Electronically Signed by Vicente Kimball MD 07/24/2019 09:04 A
[2019-07-24] MEDS: KETOROLAC 30 MG/ML VIAL (J1885) IV PRN ×3 (10:47→23:44)
[2019-07-24] MEDS ORDERED: NALOXONE INJ 0.4 MG/1 ML VIAL (J2310) IV PRN (11:15)
[2019-07-24] MEDS ORDERED: GLUCAGON FOR INJ 1 MG VIAL (J1610) SC PRN (12:15)
[2019-07-24] MEDS ORDERED: GLUCOSE 4 GM CHEW TABLET PO PRN (12:15)
[2019-07-24] MEDS ORDERED: DEXTROSE 50% 50 ML SYRINGE IV PRN (12:15)
[2019-07-24] MEDS: HumaLOG INSULIN (NovoLOG) PER UNIT SC SCH ×2 (12:36→17:44)
--- NOTE | 2019-07-24 13:02 | HPE ---
DATE OF ADMISSION: 07/24/2019 CHIEF COMPLAINT: Abdominal pain. HISTORY OF PRESENT ILLNESS: This is a 23-year-old male with a history of binge drinking, drinks a six-pack and two to three shots every few days, usually during football games, last drink was Saturday this past week. He presented to the emergency room with one day history of epigastric abdominal pain without any radiation to the shoulder blades, without fever, chills, nausea or vomiting. He describes the pain as a huge cramp and a knot. He has taken MiraLAX thinking that it was constipation with no relief. He did not take any Advil, ibuprofen, Nonsteroidal antiinflammatory drugs (NSAIDs) or Tylenol at home. There was no fever. He tried to make himself vomit and had some food emesis. He has not eaten since 2:00 p.m. yesterday. No other prior episodes of abdominal pain. Denies any history of intermittent diarrhea or constipation in the past. In the emergency room, CT of the abdomen and pelvis showed pancreatitis. Ultrasound shows no gallstones. Lipase level is elevated at 2927. ALT is elevated at 97. Bilirubin is normal. A1/c is 12 with acute onset diabetes. White count of 15. The hospitalist service was called to admit for new onset diabetes, as well as pancreatitis. PAST MEDICAL HISTORY: 1. Murmur as a child, followed up with Dr. Perez at [facility] about 3 years ago. 2. Hypertension at the age of 9, has seen a body and fender mechanic previously, no followup since. PAST SURGICAL HISTORY: None. SOCIAL HISTORY: Previously smoked cigarettes in high school, about a pack every other day, currently smokes two to three cigars for about 3 years now. He has alcoholic binges during football games, six-pack of beer and two to three shots of liquor. Drinks about two to three times a week. 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 Last drink was Saturday. No recreational drug use. Denies marijuana, cocaine, or heroin use. Has a girlfriend. FAMILY HISTORY: Father age 41 and no medical problems. Mother age 42, no medical problems, alive and well. Paternal grandfather in his 70s, diagnosed with colon cancer. Maternal grandfather of heart attack in his 60s. REVIEW OF SYSTEMS: As per history of present illness. 12-point system otherwise negative. PHYSICAL EXAMINATION: Temperature 99, pulse 106, respiratory rate 18, blood pressure 152/98, 96% on room air. GENERAL: Awake, alert, oriented times three. Answering questions appropriately. HEENT: Anicteric. No jaundice. Pupils are round and reactive. Dry mucous membranes. No jugular venous distention (JVD), thyromegaly or cervical lymphadenopathy. LUNGS: Clear to auscultation. No wheezing, rales or rhonchi. HEART: S1, S2. Sinus tachycardia. Systolic ejection murmur, 3/6, in the left lower sternal border. ABDOMEN: Soft, tender in the epigastric region. No rebound or guarding. Positive bowel sounds times four quadrants. No hepatosplenomegaly. No abdominal bruits. EXTREMITIES: No cyanosis, clubbing or any pitting edema. LABORATORY DATA: White count 15.6, hemoglobin 16, hematocrit 45, platelet count 208. Sodium 136, potassium 3.8, chloride 103, bicarbonate 17, BUN 6, creatinine 0.7, glucose of 275, A1/c of 13, lipase of 2927, ALT 97, total bilirubin 1, direct bilirubin 0.2, AST 36, alkaline phosphatase 105, total protein 7.5, albumin 4. IMAGING STUDIES: 07/24/2019 CT of the abdomen and pelvis: Pancreatic head pancreatitis with no CT evidence of tissue necrosis. Venous thrombosis, pseudoaneurysm formation or pseudocyst formation at this time. Fatty infiltration of the liver. Liver ultrasound on 07/24/2019: Negative right upper quadrant sonogram, thin walled gallbladder without evidence of stone or polyps. Common bile duct is normal measuring 0.3 cm in greatest diameter. No focal or lytic lesion is seen. Liver size is normal. No pancreatic abnormalities observed. No renal abnormalities seen. There is no evidence of ascites. Right kidney measures 12 x 4.6 x 4.6 cm. ASSESSMENT AND PLAN: This is a 23-year-old male presented to the emergency room with acute onset of epigastric abdominal pain and found to have elevated lipase level. CT of the abdomen showing pancreatitis. A1/c of 13 with glucose of 295 and new onset diabetes. PLAN: The patient will be admitted as inpatient for the following acute issues: 1. Acute pancreatitis, most likely secondary to alcohol binges. The patient admits to drinking two to three times a week, six pack of beer at a time, two to three shots of hard liquor. The patient is kept nothing by mouth with IV fluids. Ultrasound is negative for gallstones. The patient will be given IV Toradol, as well as [place] as needed for pain control. Intravenous fluids with normal saline boluses and D5 half normal while nothing by mouth with sliding scale insulin, fingersticks every six hours while nothing by mouth. The patient's lipid profile and ionized calcium will be checked in the morning with repeat A1/c in the morning. The patient will be started on insulin therapy. We will rule out type 1 diabetes with checking insulin antibodies. Diabetic teaching. Decal Decorator consultation and insulin teaching once the patient is able to take normal oral intake. 2. Active smoking. Tobacco cessation counseling has been provided at the bedside for about 10 minutes. The patient currently uses cigars but quit smoking cigarettes. 3. Fatty liver. Check lipid profile. 4. Metabolic syndrome with diabetes, dyslipidemia and obesity. We will monitor the patient's blood pressure and treat his diabetes and encourage weight loss and diet as an outpatient. 5. Murmur. Previously followed with Dr. Perez of [facility]. Obtain records from Dr. Perez's office and repeat echocardiogram. 6. Hypertension, uncontrolled, most likely secondary to pain. We will monitor on pain medications. If persistently elevated, the patient may need chronic antihypertensives. 7. Deep vein thrombosis (DVT) prophylaxis with Lovenox. MATT
[2019-07-24 13:22] VITALS: BP 152/97
--- NOTE | 2019-07-24 16:37 | ECGEPIP ---
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
[2019-07-24] MEDS ORDERED: LEVEMIR (INSULIN DETEMIR) 1 UNITS/0.01ML SC SCH (21:00)
[2019-07-24] MEDS: KCL 10MEQ IN D5/0.45NS 1000ML 1,000 ML IV SCH (21:40)
[2019-07-24 22:00] VITALS: BP 149/94
[2019-07-24 23:57] LABS: ACETONE/KETONE > 46.00 MG/DL (<2.81)
[2019-07-25] MEDS: HumaLOG INSULIN (NovoLOG) PER UNIT SC SCH ×4 (00:07→18:03)
[2019-07-25] MEDS: KETOROLAC 30 MG/ML VIAL (J1885) IV PRN ×3 (05:56→20:49)
[2019-07-25 06:00] VITALS: BP 155/89
[2019-07-25 07:06] LABS: BASO # 0.1 10^3/uL (0.0-0.2); BASO % 0.4 % (0.0-1.0); EOS # 0.1 10^3/uL (0.0-0.5); EOS % 0.5 % (0.0-3.0); HEMATOCRIT 45.4 % (42.0-52.0); HEMOGLOBIN 15.6 g/dl (13.5-17.5); LYMPH % 7.3 % (24.0-44.0); MEAN CORPUSCULAR HEMOGLOBIN 31.7 pg (27.0-33.0); MEAN CORPUSCULAR HGB CONC 34.4 g/dl (32.0-36.5); MEAN CORPUSCULAR VOLUME 92.3 fl (80.0-96.0); MONO # 1.4 10^3/uL (0.0-0.8); MONO % 10.6 % (0.0-5.0); NEUTROPHILS # 10.7 10^3/uL (1.5-8.5); NEUTROPHILS % 80.5 % (36.0-66.0); PLATELET COUNT, AUTOMATED 180 10^3/uL (150-450); RED BLOOD COUNT 4.92 10^6/uL (4.30-6.10); WHITE BLOOD COUNT 13.3 10^3/uL (4.0-10.0)
[2019-07-25 07:44] LABS: HEMOGLOBIN A1c 11.9 %
[2019-07-25 07:59] LABS: ALBUMIN 3.2 GM/DL (3.2-5.2); ALT/SGPT 49 U/L (12-78); AMYLASE 1198 U/L (25-115); BILIRUBIN,TOTAL 0.8 MG/DL (0.2-1.0); BLOOD UREA NITROGEN 4 MG/DL (7-18); CALCIUM LEVEL 8.3 MG/DL (8.5-10.1); CARBON DIOXIDE LEVEL 14 MEQ/L (21-32); CHLORIDE LEVEL 111 MEQ/L (98-107); CHOLESTEROL LEVEL 294 MG/DL (<200); GLOMERULAR FILTRATION RATE > 60.0 (>60); GLUCOSE, FASTING 233 MG/DL (70-100); HDL CHOLESTEROL 30 MG/DL (>40); LIPASE 7743 U/L (73-393); MAGNESIUM LEVEL 1.8 MG/DL (1.8-2.4); NON-HDL-C 264 MG/DL; POTASSIUM SERUM 4.1 MEQ/L (3.5-5.1); SODIUM LEVEL 141 MEQ/L (136-145); THYROID STIMULATING HORMONE 0.249 uIU/ML (0.358-3.740); TOTAL PROTEIN 6.3 GM/DL (6.4-8.2); TRIGLYCERIDES LEVEL 763 MG/DL (<150)
[2019-07-25] MEDS: ENOXAPARIN 40 MG/0.4 ML SYRINGE (J1650) SC SCH (09:56)
[2019-07-25] MEDS: KCL 10MEQ IN D5/0.45NS 1000ML 1,000 ML IV SCH (09:56)
[2019-07-25] MEDS: NORCO, ANEXSIA 5/325MG TABLET (HYDROcodone/ACETAMINOPHEN) PO PRN (09:57)
[2019-07-25] MEDS: OXAZEPAM 10 MG CAP PO PRN ×2 (13:14→20:05)
--- NOTE | 2019-07-25 13:37 | IPN ---
DATE: 07/25/2019 PRIMARY CARE PROVIDER: Dr. Geena Grimes ATTENDING PHYSICIAN: Hospitalist group. CERAMIC CHEMIST: Dr. Chris Paz was seen on . He was admitted with acute pancreatitis. He also has diabetes uncontrolled with a hemoglobin A1c of 12%. He has had polyuria, polydipsia and fatigue. He has a significant heart murmur. He apparently had an echocardiogram in the past. Says he went to [facility], saw Dr. Perez. I do not have access to those reports. His abdominal pain is better. He would like to start some clear liquids. PHYSICAL EXAMINATION: Vital signs 155/89, pulse of 100, respiratory rate 20, 100% oxygen saturation. General appearance: He actually looks quite well. Visiting with his significant other. Lungs clear. Heart tachycardic, regular with 2-3/6 systolic ejection murmur. Abdomen soft, diffusely mildly tender. Good bowel sounds. Trace peripheral edema. LABS: Repeat hemoglobin A1c is 11.9%, sodium 141, potassium 4.1, BUN 4, creatinine 1.0, glucose 233. Triglycerides are 700. Amylase 1200. Lipase 7700. White count 13.3, hemoglobin 15.6, platelets 180. IMPRESSION: 1. Acute pancreatitis. Start clear liquids. Pain control is adequate. Follow serial enzymes. Clinically he actually looks well and feels better than yesterday. We will not advance his diet until his enzymes start to come down. 2. Diabetes, probably type 1, but at this point could be either type 1 or type 2 diabetes with profound insulin resistance. LSL antibodies are pending. Short term, it is a moot point as he will need to be discharged on insulin. I had a efe discussion with him in the presence of his friend today and he understands that short term he will need insulin. If he is a type 1 diabetic he understands he will need this life long and we recommend that Dr. Grimes consider an endocrinology referral. If he is type 2 diabetic he will need insulin short term until his pancreas rests and then attempt will be made to start oral agents to supplement and eventually perhaps replace insulin over the next six months to a year. 3. Fatty liver. Once his pancreatitis improves, recommend starting a statin for lipid management. He is only 23 which is below the age of 40 where statin therapy is routinely used with diabetics, but his hyperlipidemia is severe and he has a fatty liver. 4. Heart murmur. Apparently he has been seen by [facility]. He has an echocardiogram that has been ordered. I have put a consult in for Dr. Olivas to see him so that the patient could reestablish care with [facility]. With his newly diagnosed diabetes and severe hyperlipidemia, cardiologic followup will need to be arranged before discharge.
[2019-07-25 14:00] VITALS: BP 128/80
[2019-07-25 20:00] VITALS: BP 137/98
[2019-07-25] MEDS: LEVEMIR (INSULIN DETEMIR) 1 UNITS/0.01ML SC SCH (20:05)
[2019-07-25 22:00] VITALS: BP 137/98
[2019-07-26] MEDS: HumaLOG INSULIN (NovoLOG) PER UNIT SC SCH ×4 (00:23→16:59)
[2019-07-26] MEDS: NORCO, ANEXSIA 5/325MG TABLET (HYDROcodone/ACETAMINOPHEN) PO PRN ×3 (05:44→16:31)
[2019-07-26 06:00] VITALS: BP_SYST 132; BP_DIAS 78; BP_DIAS 87
[2019-07-26 06:53] LABS: HEMATOCRIT 41.2 % (42.0-52.0); HEMOGLOBIN 14.4 g/dl (13.5-17.5); MEAN CORPUSCULAR HEMOGLOBIN 32.9 pg (27.0-33.0); MEAN CORPUSCULAR VOLUME 94.1 fl (80.0-96.0); PLATELET COUNT, AUTOMATED 170 10^3/uL (150-450); RED BLOOD COUNT 4.38 10^6/uL (4.30-6.10); WHITE BLOOD COUNT 13.6 10^3/uL (4.0-10.0)
[2019-07-26 07:24] LABS: ALBUMIN 2.8 GM/DL (3.2-5.2); ALT/SGPT 36 U/L (12-78); AMYLASE 273 U/L (25-115); BILIRUBIN,TOTAL 1.1 MG/DL (0.2-1.0); BLOOD UREA NITROGEN 6 MG/DL (7-18); CALCIUM LEVEL 9.2 MG/DL (8.5-10.1); CARBON DIOXIDE LEVEL 18 MEQ/L (21-32); CHLORIDE LEVEL 108 MEQ/L (98-107); CREATININE FOR GFR 0.88 MG/DL (0.70-1.30); GLOMERULAR FILTRATION RATE > 60.0 (>60); GLUCOSE, FASTING 214 MG/DL (70-100); LIPASE 1216 U/L (73-393); POTASSIUM SERUM 3.6 MEQ/L (3.5-5.1); SODIUM LEVEL 137 MEQ/L (136-145); TOTAL PROTEIN 6.9 GM/DL (6.4-8.2)
[2019-07-26 09:12] LABS: MAGNESIUM LEVEL 1.9 MG/DL (1.8-2.4)
--- NOTE | 2019-07-26 09:18 | ECHO ---
DATE OF SERVICE: 07/25/2019 REFERRING PROVIDER: Dr. Eunice Lester PATIENT LOCATION: Emergency department (ED). REASON FOR THE ECHOCARDIOGRAM: Heart murmur 2D MEASUREMENTS: IVS 1.3 cm LV 3.8 cm LVPW 1.3 cm LA 3.8 cm Aorta 3.0 cm RV 3.4 cm IVC 1.9 cm DOPPLER MEASUREMENTS: Peak velocity across the aortic valve: 2.3 m/s Peak velocity across the LVOT: 1.8 m/s Peak gradient across the aortic valve: 21 mmHg Mean gradient across the aortic valve: 12 mmHg. Mitral E: 0.81 Mitral A: 0.94, with a ratio of 0.9 Maximum tricuspid valve velocity: 2.4 M/S 2D COMMENTS: 1. Normal left ventricular size with a mildly increased left ventricular wall thickness. Left ventricular systolic function is normal, hyperdynamic, with an estimated left ventricular ejection fraction (LVEF) of 70-75%. 2. Normal left atrium. Normal right atrium and right ventricle. 3. The atrial septum appeared to be normal without evidence of defect or shunt. 4. Normal aortic root. 5. Trace pericardial effusion noted, no evidence of cardiac tamponade. 6. Aortic valve, mitral valve, tricuspid valve, and pulmonic valve appeared to be normal. The proximal pulmonary artery branches were not well visualized. 7. The inferior vena cava was normal in size, central venous pressure is most likely normal. DOPPLER: It detects mild to moderate mitral radiation and mild tricuspid regurgitation. The calculated pulmonary artery systolic pressure varied between 30-40 mmHg. Abnormal relaxation pattern was noted across the mitral valve leaflets as well as the mitral valve annulus, consistent with features of grade 1 left ventricular diastolic dysfunction. IMPRESSION: 1. Normal global left ventricular systolic function with a hyperdynamic left ventricle and mild concentric left ventricular hypertrophy. There are some features of grade 1 left ventricular diastolic dysfunction manifested by abnormal relaxation. 2. Mild to moderate mitral regurgitation. No evidence of mitral valve prolapse noted in this transthoracic echocardiogram. 3. Mild tricuspid regurgitation with mild pulmonary hypertension. 4. There was increased velocity noted across the LVOT/aortic valve. The underlying aortic valve appeared to be normal. The patient was tachycardiac, and the LVOT outflow tract was not well visualized due to blood flow turbulence. 5. Trace pericardial effusion, no evidence of cardiac tamponade.
[2019-07-26] MEDS: ENOXAPARIN 40 MG/0.4 ML SYRINGE (J1650) SC SCH (09:20)
[2019-07-26] MEDS: KCL 10MEQ/100ML SWI (KRUN) 10 MEQ in APPROPRIATE DILUENT 1 EA IV SCH ×2 (09:21→10:25)
[2019-07-26] MEDS ORDERED: POTASSIUM CHLORIDE 10 MEQ SR TABLET PO ONE (10:45)
[2019-07-26 11:52] LABS: CREATININE, URINE 99.1 MG/DL; MAU/CREAT RATIO 161.4 MCG/MG (0.0-30.0)
[2019-07-26 16:31] VITALS: BP 154/102
[2019-07-26] MEDS: OXAZEPAM 10 MG CAP PO PRN ×2 (16:31→22:16)
[2019-07-26 20:00] VITALS: BP 133/81
[2019-07-26] MEDS ORDERED: HumaLOG INSULIN (NovoLOG) PER UNIT SC SCH (21:00)
--- NOTE | 2019-07-26 21:43 | IPNPDOC ---
Text Note Date of Service The patient was seen on 07/26/19. NOTE Subjective: Feels much better Tolerating food Ready to try solids Objective General appearance: well appearing obese young man HEENT: NCAT, EOMI, PERRLA, MMM Lungs: CTAB Heart: 2-3/6 systolic ejection murmur louded at LLSB, RRR Abdomen: Normoactive bowel sounds, soft, mild epigastric tenderness Extremities:Trace peripheral edema Neuro: Cranial nerves intact, normal gait Labs: as below Imaging: no new imaging. Reviewed. 23 yo obese man admitted with acute pancreatitis and newly diagnosed uncontrolled diabetes with a hemoglobin A1c of 12% and a long standing heart mur mur since childhood. 1. Acute pancreatitis, most likely secondary to alcohol binges. -Lipase downtrended and symptoms resolved so now off IV fluids and advancing diet as tolerated -Ultrasound was negative for gallstones. -follow up type 1 diabetes r/o insulin antibodies. -Needs diabetic teaching. -Collections Representative consult 2. Active smoking. -Tobacco cessation counseling was provided with significant other present for 15 minutes while we discussed lifestyle changes with his current new diagnoses 3. Metabolic syndrome with diabetes, dyslipidemia and obesity. -Treating his diabetes and encouraged weight loss and a strict but pragmatic, achievable diet as an outpatient -levemir 15, SSI, FSBG AC/HS, hypoglycemia protocol 4. Murmur. Previously followed with Dr. Perez of [facility]. Reports that cardiology came to see him and recommended outpatient follow up 5. Deep vein thrombosis (DVT) prophylaxis with Lovenox. VS,Fishbone, I+O VS, Fishbone, I+O Laboratory Tests 07/26/19 06:37 Red Blood Count 4.38, Mean Corpuscular Volume 94.1, Mean Corpuscular Hemoglobin 32.9, Mean Corpuscular Hemoglobin Concent 35.0, Red Cell Distribution Width 13.2, Calcium Level 9.2, Aspartate Amino Transf (AST/SGOT) 17, Alanine Weber otransferase (ALT/SGPT) 36, Alkaline Phosphatase 75, Total Bilirubin 1.1 H, Total Protein 6.9, Albumin 2.8 L Vital Signs Date Time Temp Pulse Resp B/P (MAP) Pulse Ox O2 Delivery O2 Flow Rate FiO2 07/26/19 17:01 18 07/26/19 16:31 99.5 112 154/102 (119) 98 07/24/19 12:11 Room Air I&O- Last 24 Hours up to 6 AM 07/26/19 06:00 Intake Total 3080 ml Output Total 0 ml Balance 3080 ml MAHAMED LOZA MD Jul 26, 2019 21:43
[2019-07-26 22:00] VITALS: BP 133/81
[2019-07-26] MEDS: LEVEMIR (INSULIN DETEMIR) 1 UNITS/0.01ML SC SCH (22:07)
[2019-07-27 06:00] VITALS: BP 147/96
[2019-07-27 06:31] LABS: HEMATOCRIT 39.1 % (42.0-52.0); HEMOGLOBIN 13.5 g/dl (13.5-17.5); MEAN CORPUSCULAR HEMOGLOBIN 32.7 pg (27.0-33.0); MEAN CORPUSCULAR HGB CONC 34.5 g/dl (32.0-36.5); MEAN CORPUSCULAR VOLUME 94.7 fl (80.0-96.0); PLATELET COUNT, AUTOMATED 177 10^3/uL (150-450); RED BLOOD COUNT 4.13 10^6/uL (4.30-6.10)
[2019-07-27 06:54] VITALS: BP 147/96
[2019-07-27 07:07] LABS: ALBUMIN 2.7 GM/DL (3.2-5.2); ALT/SGPT 39 U/L (12-78); AMYLASE 150 U/L (25-115); BILIRUBIN,TOTAL 0.9 MG/DL (0.2-1.0); BLOOD UREA NITROGEN 7 MG/DL (7-18); CALCIUM LEVEL 8.8 MG/DL (8.5-10.1); CARBON DIOXIDE LEVEL 21 MEQ/L (21-32); CHLORIDE LEVEL 107 MEQ/L (98-107); CREATININE FOR GFR 0.65 MG/DL (0.70-1.30); GLOMERULAR FILTRATION RATE > 60.0 (>60); GLUCOSE, FASTING 189 MG/DL (70-100); LIPASE 817 U/L (73-393); POTASSIUM SERUM 3.6 MEQ/L (3.5-5.1); SODIUM LEVEL 140 MEQ/L (136-145)
[2019-07-27] MEDS: ENOXAPARIN 40 MG/0.4 ML SYRINGE (J1650) SC SCH (08:19)
[2019-07-27] MEDS: HumaLOG INSULIN (NovoLOG) PER UNIT SC SCH ×2 (08:19→12:19)
[2019-07-27 09:00] VITALS: BP 147/86
[2019-07-27] MEDS ORDERED: POTASSIUM CHLORIDE 10 MEQ SR TABLET PO ONE (09:00)
[2019-07-27] MEDS ORDERED: LANC30MI XX (14:48)
[2019-07-27] MEDS ORDERED: GLUC1TES2 XX (14:48)
[2019-07-27] MEDS ORDERED: ALCOPAD25 TOP (14:48)
[2019-07-27] MEDS ORDERED: LANTINJ4 SC (14:50)
--- NOTE | 2019-07-27 14:51 | DS.PDOC ---
Discharge Summary General Date of Admission Jul 24, 2019 at 08:09 Date of Discharge 07/27/2019 Attending Physician: MAHAMED LOZA MD Discharge Summary PROCEDURES PERFORMED DURING STAY: None ADMITTING DIAGNOSES: 1. Pancreatitis DISCHARGE DIAGNOSES: 1. Pancreatitis 2. Newly diagnosed diabetes mellitus 3. Hypertension 4. Hyperlipidemia 5. Smoking 6. Heart murmur 7. Fatty liver COMPLICATIONS/CHIEF COMPLAINT: Pancreatitis. HISTORY OF PRESENT ILLNESS: 23-year-old male with a history hypertension since age 9, morbid obesity, history of binge drinking often especially during social events, cigar smoker, prior cigarette smoker who presented to the emergency room with one day history of non radiating epigastric abdominal pain without fever, chills, nausea or vomiting. HOSPITAL COURSE: In the emergency room his work up was notable for a CT of the abdomen and pelvis that showed pancreatitis and an abdominal ultrasound that showed no gallstones, with an elevated lipase at 2927, leukocytosis to 15 and mild transaminitis without hyperbilirubinemia. He was also notably hyperglycemic and therefore a diabetes work up was sent that showed an A1/c of 12, elevated beta hydroxybutyrate and admitted for acute pancreatitis and newly diagnosed diabetes mellitus. OF note, he was noted to have a systolic murmur that he reported to have been known since childhood. His course by issue was as below: 1. Acute pancreatitis, most likely secondary to alcohol binges. -He was placed on fluids and made NPO. -His lipase downtrended and symptoms resolved, at which point his diet was advanced as tolerated and fluids discontinued -At discharge, he was tolerating a diabetic diet without pain or discomfort. 2. Newly diagnosed diabetes mellitus: -Will need to follow up type 1 diabetes antibodies that were still pending at discharge, namely anti islet, anti insulin and IA-2 auto antibodies -He was started on levemir 15U nightly and an insulin sliding scale. he will be discharged on 20U of lantus ONLY with close PCP follow and no sliding scale as this may be overwhelming to a new diabetic and will continue optimization outpatient. -He received new diabetic teaching and signs of hypoglycemia and management -He will need to follow with a hemotherapist via his PCP to continue to optimize his diet, exercise regimen and work on weight loss as his morbid obesity is likely central to his metabolic syndrome. -Received glucometer inhouse. Will write scripts of supplies (lancets, needles and lantus pen) 2. Active smoking. -Tobacco cessation counseling was provided with significant other present for 15 minutes while we discussed lifestyle changes with his current new diagnoses 3. Metabolic syndrome with diabetes, dyslipidemia and obesity. -While I managed his diabetes. I encouraged weight loss and a strict but pragmatic, achievable diet as an outpatient and to follow up with a hemotherapist to device a sustainable weight loss plan as this was affecting his likely development of diabets, hyperlipidemia, hypertension and fatty liver disease as seen on imaging. 4. Murmur. He was previously followed with Dr. Perez of [facility]. In house cardiology was consulted and recommended outpatient follow up for this known long standing murmur. 5. Hypertension: was mild, deferred to outpatient. DISCHARGE MEDICATIONS: Please see below. ALLERGIES: Please see below. PHYSICAL EXAMINATION ON DISCHARGE: VITAL SIGNS: Please see below. General appearance: well appearing obese young man HEENT: NCAT, EOMI, PERRLA, MMM Lungs: CTAB Heart: 2-3/6 systolic ejection murmur, RRR Abdomen: Normoactive bowel sounds, soft, mild epigastric tenderness Extremities:Trace peripheral edema Neuro: Cranial nerves intact, normal gait LABORATORY DATA: Please see below. IMAGIN07/24/2019: CT Abdomen and Pelvis With Contrast Liver: The liver is diffusely hypoattenuated. Gallbladder and bile ducts: There is no biliary ductal dilatation. Pancreas: There is pancreatic head heterogeneity with marked elizabet-pancreatic head stranding and edema extending inferiorly along the retroperitoneal planes. There is no pancreatic ductal dilatation. Spleen: Normal. No splenomegaly. Adrenals: Normal. No mass. Kidneys and ureters: Normal. No hydronephrosis. Stomach and bowel: Unremarkable. No obstruction. No mucosal thickening. Appendix: No evidence of appendicitis. Intraperitoneal space: Unremarkable. No free air. No significant fluid collection. Vasculature: Unremarkable. No abdominal aortic aneurysm. Lymph nodes: Unremarkable. No enlarged lymph nodes. Bladder: Unremarkable as visualized. Reproductive: Unremarkable as visualized. Bones/joints: Unremarkable. No acute fracture. Soft tissues: Unremarkable. IMPRESSION: 1. Pancreatic head pancreatitis with no CT evidence of tissue necrosis, venous thromboses, pseudoaneurysm formation or pseudocyst formation at this time. 2. Fatty infiltration of the liver. 07/24/2019: Liver US Findings: Scanning through the right upper quadrant of the abdomen demonstrates a normal sized, thin-walled gallbladder without evidence of stone or polyp. Common bile duct is normal measuring 0.3 cm in greatest diameter. No focal liver lesion is seen. Liver size is normal. No pancreatic abnormality is observed. No right renal abnormality is seen. There is no evidence of ascites. The right kidney measures 12.2 x 4.6 x 4.6 cm. Impression: Negative right upper quadrant sonography. PROGNOSIS: Good ACTIVITY: As tolerated DIET: Consistent carbohydrate DISCHARGE PLAN: 1. New insulin use, teaching completed, given glucometer and taught how to use it. Ordered strips, insulin pens and needles. Will follow up with PCP with 5-7days for new diagnosis of diabetes mellitus not yet established to be type 1 vs. type 2. Will also follow up with PCP about alcohol cessation plan, weight loss given young age with significant obesity related comorbidities (diabetes, fatty liver, hyperlipidemia). DISPOSITION: Home DISCHARGE INSTRUCTIONS: 1. Please follow up with your PCP promptly within the next 5 days to discuss your new diagnosis of diabetes and the appropriate further work up of its etiology and treatment plan going forward. 2. Please refrain for alcohol at this time, and seek counselling ITEMS TO FOLLOWUP ON OUTPATIENT: 1. New diagnosis of diabetes mellitus 2. Hypertension 3. Hyperlipidemia 4. Morbid obesity 5. Smoking cessation 6. Pancreatitis 7. Fatty liver on imaging DISCHARGE CONDITION: Good TIME SPENT ON DISCHARGE: Greater than 45 minutes. Vital Signs/I&Os Vital Signs Date Time Temp Pulse Resp B/P (MAP) Pulse Ox O2 Delivery O2 Flow Rate FiO2 07/27/19 09:00 109 147/86 07/27/19 06:00 97.8 20 98 07/24/19 12:11 Room Air I&O- Last 24 Hours up to 6 AM 07/27/19 06:00 Intake Total 1020 ml Output Total 0 ml Balance 1020 ml Laboratory Data Labs 24H Laboratory Tests 2 07/26/19 11:58: Bedside Glucose (Misc Panel) 216H 07/26/19 16:36: Bedside Glucose (Misc Panel) 176H 07/26/19 21:11: Bedside Glucose (Misc Panel) 217H 07/27/19 06:19: Nucleated Red Blood Cells % (auto) 0.0, Anion Gap 12, Glomerular Filtration Rate > 60.0, Blood Urea Nitrogen 7, Creatinine 0.65L, Sodium Level 140, Potassium Level 3.6, Chloride Level 107, Carbon Dioxide Level 21, Calcium Level 8.8, Aspartate Amino Transf (AST/SGOT) 25, Alanine Aminotransferase (ALT/SGPT) 39, Alkaline Phosphatase 85, Total Bilirubin 0.9, Total Protein 7.0, Albumin 2.7L, Albumin/Globulin Ratio 0.63L, Amylase Level 150H, Lipase 817H CBC/BMP Laboratory Tests 07/27/19 06:19 Red Blood Count 4.13 L, Mean Corpuscular Volume 94.7, Mean Corpuscular Hemoglobin 32.7, Mean Corpuscular Hemoglobin Concent 34.5, Red Cell Distribution Width 13.2, Calcium Level 8.8, Aspartate Amino Transf (AST/SGOT) 25, Alanine Aminotransferase (ALT/SGPT) 39, Alkaline Phosphatase 85, Total Bilirubin 0.9, Total Protein 7.0, Albumin 2.7 L FSBS Laboratory Tests Test 07/26/19 11:58 07/26/19 16:36 07/26/19 21:11 Range/Units Bedside Glucose (Misc Panel) 216 176 217 70-105 MG/DL Discharge Medications Scheduled Blood Sugar Diagnostic (Advanced Glucose Test Strips) 1 Each Strip, 1 STRIP XX ASDIRECTED Insulin Glargine,Hum.rec.anlog (Lantus Solostar) 100 Unit/1 Ml Insuln.pen, 20 UNIT SC QPM Scheduled PRN Polyethylene Glycol 3350 (Miralax) 119 Gm Powder, 17 GM PO DAILY PRN for CONSTIPATION, (Reported) dilute in 8 ounces of water or juice Allergies Coded Allergies: No Known Allergies (Unverified , 07/24/19) MAHAMED LOZA MD Jul 27, 2019 12:05
[2019-07-27] MEDS ORDERED: INSU100I9 SQ (15:33)
== END 2019-07-27 16:05 | disposition home or self-care (01) | DRG 282 ==
LOC: M ED 03:35 → M ED INP 08:09 → M MS5PR 13:20
PROVIDERS: ADMIT General Practice; ATTEND Internal Medicine
DX: K85.20 Alcohol induced acute pancreatitis without necrosis or infection (principal); E88.81 Metabolic syndrome and other insulin resistance; K70.0 Alcoholic fatty liver; E66.01 Morbid (severe) obesity due to excess calories; E10.9 Type 1 diabetes mellitus without complications; I10 Essential (primary) hypertension; E78.5 Hyperlipidemia, unspecified; F17.200 Nicotine dependence, unspecified, uncomplicated; R01.1 Cardiac murmur, unspecified

== ENCOUNTER → 2019-08-13 | Outpatient (REF) | payer BC ==
[~2019-08-13] MED LIST: ALCOPAD25 TOP; GLUC1TES2 XX; INSU100I9 SQ; LANC30MI XX; LANTINJ4 SC; MIRA3350 PO
== END ==
LOC: M SFHCPLAZ 16:00
DX: R79.89 Other specified abnormal findings of blood chemistry (principal); E78.5 Hyperlipidemia, unspecified; E11.9 Type 2 diabetes mellitus without complications

== ENCOUNTER → 2019-08-19 | Outpatient (CLI) | payer BC ==
[2019-08-19 12:48] LABS: CHOLESTEROL RISK RATIO 4.538 (<5); THYROID STIMULATING HORMONE 1.04 uIU/ML (0.358-3.740)
[2019-08-22 00:13] LABS: C-PEPTIDE 4.3 ng/mL (1.1-4.4)
== END ==
LOC: M LAB 11:34
PROVIDERS: ATTEND Internal Medicine
DX: E11.9 Type 2 diabetes mellitus without complications (principal)

== ENCOUNTER 2022-06-05 05:16 | Inpatient (IN) | payer BC, OTHER ==
[2022-06-05] VITALS (11 sets, daily range): BP systolic 144–174; BP diastolic 72–117
[~2022-06-05] VITALS: Ht 182.9 cm; Wt 112.5 kg
[2022-06-05 05:59] LABS: BASO # 0.1 10^3/uL (0.0-0.2); BASO % 0.6 % (0.0-1.0); EOS # 0.3 10^3/uL (0.0-0.5); EOS % 2.9 % (0.0-3.0); HEMATOCRIT 45.5 % (42.0-52.0); HEMOGLOBIN 16.6 g/dl (13.5-17.5); LYMPH # 2.2 10^3/uL (1.5-5.0); LYMPH % 21.3 % (24.0-44.0); MEAN CORPUSCULAR HEMOGLOBIN 33.1 pg (27.0-33.0); MEAN CORPUSCULAR HGB CONC 36.5 g/dl (32.0-36.5); MEAN CORPUSCULAR VOLUME 90.6 fl (80.0-96.0); MONO # 0.8 10^3/uL (0.0-0.8); MONO % 7.8 % (2.0-8.0); NEUTROPHILS # 6.9 10^3/uL (1.5-8.5); NEUTROPHILS % 66.9 % (36.0-66.0); PLATELET COUNT, AUTOMATED 188 10^3/uL (150-450); RED BLOOD COUNT 5.02 10^6/uL (4.30-6.10); WHITE BLOOD COUNT 10.3 10^3/uL (4.0-10.0)
[2022-06-05] MEDS ORDERED: PANTOPRAZOLE 40MG VIAL IV ONE (07:25)
[2022-06-05] MEDS ORDERED: NS 1,000 ML IV ONE ×2 (07:25→09:10)
[2022-06-05 07:54] LABS: BLOOD UREA NITROGEN 9 MG/DL (7-18); CARBON DIOXIDE LEVEL 23 mmol/L (20-29); CHLORIDE LEVEL 101 MEQ/L (98-107); CREATININE FOR GFR 0.91 MG/DL (0.70-1.30); GLOMERULAR FILTRATION RATE > 60.0 (>60); POTASSIUM SERUM 4.6 MEQ/L (3.5-5.1); SODIUM LEVEL 135 MEQ/L (136-145)
[2022-06-05 07:55] LABS: ALBUMIN 3.8 GM/DL (3.2-5.2); BILIRUBIN,DIRECT < 0.1 MG/DL (0.0-0.2); BILIRUBIN,TOTAL 1.1 MG/DL (0.2-1.0); CALCIUM LEVEL 8.6 MG/DL (8.5-10.1); TOTAL PROTEIN 7.5 GM/DL (6.4-8.2)
[2022-06-05 07:56] LABS: ETHYL ALCOHOL (ETHANOL) < 0.003 % (0.000-0.010); GLUCOSE, FASTING 309 MG/DL (70-100); LIPASE 1618 U/L (73-393)
[2022-06-05 08:09] LABS: ALT/SGPT 57 IU/L (0-32)
[2022-06-05] MEDS ORDERED: ISOVUE-370 76% 100ML VIAL As Ordered ONE (08:24)
[2022-06-05] MEDS: NICOTINE 7 MG/24 HR TRANSDERMAL TD SCH (09:00)
[2022-06-05] MEDS ORDERED: ACETAMINOPHEN 500 MG TAB PO ONE (09:10)
[2022-06-05] MEDS ORDERED: LR 1,000 ML IV ONE (09:40)
[2022-06-05] MEDS ORDERED: HOME MED LIST COMPLETE! XX SCH (10:05)
[2022-06-05 10:16] LABS: AMPHETAMINES LEVEL URINE NEGATIVE (NEGATIVE); BARBITURATES URINE NEGATIVE (NEGATIVE); BENZODIAZEPINES URINE NEGATIVE (NEGATIVE); CANNABINOIDS URINE NEGATIVE (NEGATIVE); COCAINE METABOLITE URINE NEGATIVE (NEGATIVE); METHADONE URINE NEGATIVE (NEGATIVE); OPIATES URINE NEGATIVE (NEGATIVE); PHENCYCLIDINE URINE NEGATIVE (NEGATIVE)
[2022-06-05 10:30] LABS: HEMOGLOBIN A1c 10.6 %
[2022-06-05] MEDS ORDERED: MOM 30ML SUSPENSION UDC PO PRN (11:10)
[2022-06-05] MEDS ORDERED: MAALOX 30 ML SUSP *UDC PO PRN (11:10)
[2022-06-05 11:42] LABS: RSV AMPLIFICATION NEGATIVE (NEGATIVE)
[2022-06-05] MEDS ORDERED: LR 1,000 ML IV SCH (11:50)
[2022-06-05] MEDS ORDERED: INSULIN LISPRO (NovoLOG) PER UNIT SC SCH ×2 (12:00→21:00)
[2022-06-05] MEDS ORDERED: GLUCOSE 4GM CHEW TABLET PO PRN (12:10)
[2022-06-05] MEDS ORDERED: DEXTROSE 50% 50 ML SYRINGE IV PRN (12:10)
[2022-06-05] MEDS ORDERED: GLUCAGON INJ 1MG VIAL SC PRN (12:10)
[2022-06-05 12:37] LABS: TRIGLYCERIDES LEVEL 2603 MG/DL (<150)
[2022-06-05 12:38] LABS: CHOLESTEROL LEVEL 394 MG/DL (<200); CHOLESTEROL RISK RATIO 12.709 (<5); HDL CHOLESTEROL 31 MG/DL (>40); NON-HDL-C 363 MG/DL
[2022-06-05] MEDS: THIAMINE 100 MG TAB PO SCH ×2 (12:58→20:56)
[2022-06-05] MEDS: MULTIVITAMINS/MINERALS THERAP 1 TAB PO SCH (12:58)
[2022-06-05] MEDS: FOLIC ACID 1 MG TAB PO SCH (12:58)
[2022-06-05] MEDS: ACETAMINOPHEN TAB 650MG DOSE (2X325MG) PO PRN ×2 (12:59→19:36)
[2022-06-05] MEDS: HEPARIN SOD (PORCINE) 5000UNITS/ML 1ML VIAL/SYRINGE SC SCH ×2 (13:04→20:56)
[2022-06-05] MEDS ORDERED: LR 2,000 ML IV ONE (14:15)
[2022-06-05] MEDS ORDERED: D5W/LR 1,000 ML IV SCH (15:10)
[2022-06-05] MEDS: INSULIN REGULAR IN 0.9 % NACL 100 UNIT in IV 1 EA IV SCH ×4 (15:28→19:06)
[2022-06-05] MEDS: INSULIN IV RATE CHANGE DOCUMENTATION ML/HR XX SCH ×3 (16:33→23:19)
[2022-06-05 16:57] LABS: BLOOD UREA NITROGEN 6 MG/DL (7-18); CALCIUM LEVEL 8.5 MG/DL (8.5-10.1); CARBON DIOXIDE LEVEL 23 MEQ/L (21-32); CHLORIDE LEVEL 103 MEQ/L (98-107); CREATININE FOR GFR 0.72 MG/DL (0.70-1.30); GLOMERULAR FILTRATION RATE > 60.0 (>60); GLUCOSE, FASTING 208 MG/DL (70-100); MAGNESIUM LEVEL 1.5 MG/DL (1.8-2.4); PHOSPHORUS LEVEL 2.2 MG/DL (2.5-4.9); POTASSIUM SERUM 3.9 MEQ/L (3.5-5.1); SODIUM LEVEL 137 MEQ/L (136-145); TRIGLYCERIDES LEVEL 1731 MG/DL (<150)
[2022-06-05] MEDS: D10W 1,000 ML IV SCH ×2 (17:20→23:14)
[2022-06-05] MEDS ORDERED: LIDOCAINE 1% MDV 20ML VIAL As Ordered ONE (18:03)
[2022-06-05] MEDS: MAG SULF 1GM/100ML (MAG RUN) 1 GM in IV 1 EA IV SCH ×2 (18:56→20:00)
[2022-06-05] MEDS ORDERED: POTASSIUM PHOSPHATE INJ 30 MMOL in D5W 500 ML IV ONE (19:00)
[2022-06-05] MEDS ORDERED: LIDOCAINE 1% MDV 20ML VIAL SC ONE (19:00)
[2022-06-05] MEDS: LORazepam 2 MG TAB PO PRN (19:35)
[2022-06-05] MEDS: OMEGA-3 1000MG CAPSULE PO SCH (20:56)
[2022-06-05] MEDS: FENOFIBRATE 145MG TABLET (TRICOR) PO SCH (20:56)
[2022-06-05] MEDS: DOCUSATE SODIUM 100MG CAPSULE PO SCH (20:56)
[2022-06-05] MEDS ORDERED: LEVEMIR (INSULIN DETEMIR) 1 UNITS/0.01ML SC SCH (21:00)
[2022-06-05 22:13] LABS: BLOOD UREA NITROGEN 4 MG/DL (7-18); CALCIUM LEVEL 8.4 MG/DL (8.5-10.1); CARBON DIOXIDE LEVEL 25 MEQ/L (21-32); CHLORIDE LEVEL 99 MEQ/L (98-107); CREATININE FOR GFR 0.78 MG/DL (0.70-1.30); GLOMERULAR FILTRATION RATE > 60.0 (>60); GLUCOSE, FASTING 314 MG/DL (70-100); PHOSPHORUS LEVEL 2.7 MG/DL (2.5-4.9); POTASSIUM SERUM 3.6 MEQ/L (3.5-5.1); SODIUM LEVEL 133 MEQ/L (136-145)
[2022-06-05 22:14] LABS: MAGNESIUM LEVEL 2.3 MG/DL (1.8-2.4)
[2022-06-05] MEDS ORDERED: POTASSIUM CHLORIDE 10MEQ SR TABLET PO ONE (23:15)
[2022-06-06] VITALS (24 sets, daily range): BP systolic 113–148; BP diastolic 64–95
[2022-06-06] MEDS: INSULIN IV RATE CHANGE DOCUMENTATION ML/HR XX SCH ×5 (01:08→23:14)
[2022-06-06] MEDS: INSULIN REGULAR IN 0.9 % NACL 100 UNIT in IV 1 EA IV SCH ×6 (02:55→17:25)
[2022-06-06 03:10] LABS: BASO % 0.4 % (0.0-1.0); EOS # 0.2 10^3/uL (0.0-0.5); EOS % 2.4 % (0.0-3.0); HEMATOCRIT 42.3 % (42.0-52.0); LYMPH # 1.9 10^3/uL (1.5-5.0); LYMPH % 18.6 % (24.0-44.0); MEAN CORPUSCULAR HEMOGLOBIN 32.1 pg (27.0-33.0); MEAN CORPUSCULAR HGB CONC 35.5 g/dl (32.0-36.5); MEAN CORPUSCULAR VOLUME 90.6 fl (80.0-96.0); MONO % 9.6 % (2.0-8.0); NEUTROPHILS % 68.6 % (36.0-66.0); PLATELET COUNT, AUTOMATED 167 10^3/uL (150-450); RED BLOOD COUNT 4.67 10^6/uL (4.30-6.10); WHITE BLOOD COUNT 10.1 10^3/uL (4.0-10.0)
[2022-06-06 03:33] LABS: BLOOD UREA NITROGEN 3 MG/DL (7-18); CALCIUM LEVEL 8.5 MG/DL (8.5-10.1); CARBON DIOXIDE LEVEL 30 MEQ/L (21-32); CHLORIDE LEVEL 101 MEQ/L (98-107); GLOMERULAR FILTRATION RATE > 60.0 (>60); GLUCOSE, FASTING 125 MG/DL (70-100); PHOSPHORUS LEVEL 2.7 MG/DL (2.5-4.9); POTASSIUM SERUM 3.4 MEQ/L (3.5-5.1); SODIUM LEVEL 136 MEQ/L (136-145)
[2022-06-06] MEDS: D10W 1,000 ML IV SCH ×3 (05:03→19:45)
[2022-06-06] MEDS ORDERED: POTASSIUM CHLORIDE 10MEQ SR TABLET PO ONE ×2 (08:00→16:15)
[2022-06-06] MEDS: FENOFIBRATE 145MG TABLET (TRICOR) PO SCH (08:22)
[2022-06-06] MEDS: HEPARIN SOD (PORCINE) 5000UNITS/ML 1ML VIAL/SYRINGE SC SCH ×2 (08:22→21:00)
[2022-06-06] MEDS: MULTIVITAMINS/MINERALS THERAP 1 TAB PO SCH (08:23)
[2022-06-06] MEDS: DOCUSATE SODIUM 100MG CAPSULE PO SCH ×2 (08:23→20:59)
[2022-06-06] MEDS: THIAMINE 100 MG TAB PO SCH ×2 (08:23→20:59)
[2022-06-06] MEDS: OMEGA-3 1000MG CAPSULE PO SCH (08:24)
[2022-06-06] MEDS: FOLIC ACID 1 MG TAB PO SCH (08:24)
[2022-06-06] MEDS: LORazepam 2 MG TAB PO PRN (08:30)
[2022-06-06] MEDS: NICOTINE 7 MG/24 HR TRANSDERMAL TD SCH (09:00)
[2022-06-06 09:01] LABS: BLOOD UREA NITROGEN 3 MG/DL (7-18); CALCIUM LEVEL 8.7 MG/DL (8.5-10.1); CARBON DIOXIDE LEVEL 27 MEQ/L (21-32); CHLORIDE LEVEL 104 MEQ/L (98-107); CREATININE FOR GFR 0.82 MG/DL (0.70-1.30); GLOMERULAR FILTRATION RATE > 60.0 (>60); GLUCOSE, FASTING 145 MG/DL (70-100); MAGNESIUM LEVEL 1.9 MG/DL (1.8-2.4); PHOSPHORUS LEVEL 2.9 MG/DL (2.5-4.9); POTASSIUM SERUM 3.6 MEQ/L (3.5-5.1); SODIUM LEVEL 138 MEQ/L (136-145); TRIGLYCERIDES LEVEL 895 MG/DL (<150)
[2022-06-06] MEDS ORDERED: POTASSIUM PHOSPHATE INJ 30 MMOL in D5W 500 ML IV ONE (10:00)
[2022-06-06 14:32] LABS: BLOOD UREA NITROGEN 4 MG/DL (7-18); CALCIUM LEVEL 8.8 MG/DL (8.5-10.1); CARBON DIOXIDE LEVEL 28 MEQ/L (21-32); CHLORIDE LEVEL 105 MEQ/L (98-107); CREATININE FOR GFR 0.88 MG/DL (0.70-1.30); GLOMERULAR FILTRATION RATE > 60.0 (>60); GLUCOSE, FASTING 180 MG/DL (70-100); PHOSPHORUS LEVEL 3.1 MG/DL (2.5-4.9); POTASSIUM SERUM 3.9 MEQ/L (3.5-5.1); SODIUM LEVEL 139 MEQ/L (136-145); TRIGLYCERIDES LEVEL 766 MG/DL (<150)
[2022-06-06 21:58] LABS: BLOOD UREA NITROGEN 3 MG/DL (7-18); CALCIUM LEVEL 9.1 MG/DL (8.5-10.1); CARBON DIOXIDE LEVEL 29 MEQ/L (21-32); CHLORIDE LEVEL 104 MEQ/L (98-107); CREATININE FOR GFR 0.83 MG/DL (0.70-1.30); GLOMERULAR FILTRATION RATE > 60.0 (>60); GLUCOSE, FASTING 120 MG/DL (70-100); MAGNESIUM LEVEL 1.9 MG/DL (1.8-2.4); PHOSPHORUS LEVEL 3.6 MG/DL (2.5-4.9); POTASSIUM SERUM 3.9 MEQ/L (3.5-5.1); SODIUM LEVEL 139 MEQ/L (136-145)
[2022-06-07] VITALS (15 sets, daily range): BP systolic 107–136; BP diastolic 64–87
[2022-06-07] MEDS: D10W 1,000 ML IV SCH ×3 (00:45→12:00)
[2022-06-07] MEDS: INSULIN IV RATE CHANGE DOCUMENTATION ML/HR XX SCH ×7 (01:05→13:00)
[2022-06-07] MEDS: INSULIN REGULAR IN 0.9 % NACL 100 UNIT in IV 1 EA IV SCH ×2 (02:56)
[2022-06-07 05:38] LABS: BASO # 0.1 10^3/uL (0.0-0.2); BASO % 0.7 % (0.0-1.0); EOS # 0.5 10^3/uL (0.0-0.5); EOS % 5.6 % (0.0-3.0); HEMATOCRIT 41.8 % (42.0-52.0); LYMPH # 2.4 10^3/uL (1.5-5.0); MEAN CORPUSCULAR HEMOGLOBIN 33.3 pg (27.0-33.0); MEAN CORPUSCULAR HGB CONC 35.9 g/dl (32.0-36.5); MEAN CORPUSCULAR VOLUME 92.9 fl (80.0-96.0); MONO % 11.8 % (2.0-8.0); NEUTROPHILS # 4.4 10^3/uL (1.5-8.5); NEUTROPHILS % 52.4 % (36.0-66.0); PLATELET COUNT, AUTOMATED 159 10^3/uL (150-450); WHITE BLOOD COUNT 8.4 10^3/uL (4.0-10.0)
[2022-06-07 06:02] LABS: BLOOD UREA NITROGEN 3 MG/DL (7-18); CALCIUM LEVEL 8.2 MG/DL (8.5-10.1); CARBON DIOXIDE LEVEL 30 MEQ/L (21-32); CHLORIDE LEVEL 103 MEQ/L (98-107); CREATININE FOR GFR 0.82 MG/DL (0.70-1.30); GLOMERULAR FILTRATION RATE > 60.0 (>60); GLUCOSE, FASTING 109 MG/DL (70-100); POTASSIUM SERUM 3.6 MEQ/L (3.5-5.1); SODIUM LEVEL 137 MEQ/L (136-145)
[2022-06-07] MEDS ORDERED: NS 1,000 ML IV ONE (07:30)
[2022-06-07 08:32] LABS: TRIGLYCERIDES LEVEL 492 MG/DL (<150)
[2022-06-07] MEDS: OMEGA-3 1000MG CAPSULE PO SCH (08:37)
[2022-06-07] MEDS: FOLIC ACID 1 MG TAB PO SCH (08:38)
[2022-06-07] MEDS: THIAMINE 100 MG TAB PO SCH ×2 (08:38→20:57)
[2022-06-07] MEDS: FENOFIBRATE 145MG TABLET (TRICOR) PO SCH (08:38)
[2022-06-07] MEDS: MULTIVITAMINS/MINERALS THERAP 1 TAB PO SCH (08:38)
[2022-06-07] MEDS: HEPARIN SOD (PORCINE) 5000UNITS/ML 1ML VIAL/SYRINGE SC SCH ×2 (08:38→20:57)
[2022-06-07] MEDS: NICOTINE 7 MG/24 HR TRANSDERMAL TD SCH (09:00)
[2022-06-07] MEDS: DOCUSATE SODIUM 100MG CAPSULE PO SCH ×2 (09:00→21:00)
[2022-06-07] MEDS ORDERED: DEXTROSE 50% 50 ML SYRINGE IV PRN (13:40)
[2022-06-07] MEDS ORDERED: LEVEMIR (INSULIN DETEMIR) 1 UNITS/0.01ML SC SCH (13:40)
[2022-06-07] MEDS ORDERED: GLUCOSE 4GM CHEW TABLET PO PRN (13:40)
[2022-06-07] MEDS ORDERED: NEOSPORIN OINT 0.9 GM PKT TOP ONE (13:40)
[2022-06-07] MEDS ORDERED: GLUCAGON INJ 1MG VIAL SC PRN (13:40)
[2022-06-07] MEDS: LEVEMIR (INSULIN DETEMIR) 1 UNITS/0.01ML SC SCH (14:05)
[2022-06-07] MEDS: INSULIN LISPRO (NovoLOG) PER UNIT SC SCH (17:01)
[2022-06-07] MEDS ORDERED: INSULIN LISPRO (NovoLOG) PER UNIT SC SCH (21:00)
[2022-06-08] VITALS: BP 130/75
[2022-06-08 04:10] VITALS: BP 113/65
[2022-06-08 04:11] VITALS: BP 113/65
[2022-06-08 06:40] LABS: BASO # 0.1 10^3/uL (0.0-0.2); BASO % 1.1 % (0.0-1.0); EOS # 0.5 10^3/uL (0.0-0.5); EOS % 8.8 % (0.0-3.0); HEMATOCRIT 42.6 % (42.0-52.0); HEMOGLOBIN 14.5 g/dl (13.5-17.5); LYMPH # 2.5 10^3/uL (1.5-5.0); LYMPH % 40.3 % (24.0-44.0); MEAN CORPUSCULAR HEMOGLOBIN 32.4 pg (27.0-33.0); MEAN CORPUSCULAR VOLUME 95.1 fl (80.0-96.0); MONO # 0.7 10^3/uL (0.0-0.8); MONO % 11.5 % (2.0-8.0); NEUTROPHILS # 2.3 10^3/uL (1.5-8.5); NEUTROPHILS % 37.3 % (36.0-66.0); PLATELET COUNT, AUTOMATED 185 10^3/uL (150-450); RED BLOOD COUNT 4.48 10^6/uL (4.30-6.10); WHITE BLOOD COUNT 6.2 10^3/uL (4.0-10.0)
[2022-06-08 07:02] LABS: MAGNESIUM LEVEL 1.8 MG/DL (1.8-2.4); TRIGLYCERIDES LEVEL 554 MG/DL (<150)
[2022-06-08] MEDS ORDERED: NS 1,000 ML IV SCH (07:15)
[2022-06-08 07:55] VITALS: BP 140/81
[2022-06-08] MEDS: OMEGA-3 1000MG CAPSULE PO SCH (07:56)
[2022-06-08] MEDS: MULTIVITAMINS/MINERALS THERAP 1 TAB PO SCH (07:56)
[2022-06-08] MEDS: LEVEMIR (INSULIN DETEMIR) 1 UNITS/0.01ML SC SCH (07:57)
[2022-06-08] MEDS: FENOFIBRATE 145MG TABLET (TRICOR) PO SCH (07:57)
[2022-06-08] MEDS: FOLIC ACID 1 MG TAB PO SCH (07:57)
[2022-06-08] MEDS: INSULIN LISPRO (NovoLOG) PER UNIT SC SCH ×2 (07:58→12:00)
[2022-06-08] MEDS: HEPARIN SOD (PORCINE) 5000UNITS/ML 1ML VIAL/SYRINGE SC SCH (07:59)
[2022-06-08] MEDS ORDERED: NS 1,000 ML IV ONE ×2 (08:00→09:00)
[2022-06-08 08:35] VITALS: BP 125/83
[2022-06-08 08:42] LABS: BLOOD UREA NITROGEN 7 MG/DL (7-18); CALCIUM LEVEL 9.3 MG/DL (8.5-10.1); CARBON DIOXIDE LEVEL 26 MEQ/L (21-32); CHLORIDE LEVEL 107 MEQ/L (98-107); CREATININE FOR GFR 0.76 MG/DL (0.70-1.30); GLOMERULAR FILTRATION RATE > 60.0 (>60); GLUCOSE, FASTING 204 MG/DL (70-100); POTASSIUM SERUM 4.4 MEQ/L (3.5-5.1); SODIUM LEVEL 141 MEQ/L (136-145)
[2022-06-08] MEDS ORDERED: MAG SULF 1GM/100ML (MAG RUN) 1 GM in IV 1 EA IV ONE (09:00)
[2022-06-08] MEDS: DOCUSATE SODIUM 100MG CAPSULE PO SCH (09:00)
[2022-06-08] MEDS ORDERED: MAGNESIUM OXIDE 400MG TAB (MAG-OX) PO ONE (10:40)
[2022-06-08] MEDS ORDERED: FENO145T7 PO (10:59)
[2022-06-08] MEDS ORDERED: INSUDET SC (10:59)
[2022-06-08] MEDS ORDERED: BLOO-76 MC (10:59)
[2022-06-08] MEDS ORDERED: GLOB31MI SC (10:59)
[2022-06-08] MEDS ORDERED: FISH1CAP26 PO (10:59)
[2022-06-08] MEDS ORDERED: INSUHUMDS SC ×3 (10:59→12:03)
[2022-06-08] MEDS ORDERED: ULTI70PA2 XX (10:59)
[2022-06-08] MEDS ORDERED: LANC1MIS XX (10:59)
== END 2022-06-08 14:00 | disposition home or self-care (01) | DRG 282 ==
LOC: M ED 05:16 → M ED INP 12:05 → ENRESERV 13:22 → M MSPAV 14:21 → M ICU 15:00 → M 4MAIN 06-08 08:31
PROVIDERS: ADMIT Internal Medicine; ATTEND Internal Medicine
PROC: 05HB33Z Insertion of Infusion Device into Right Basilic Vein, Percutaneous Approach (ICD-10-PCS; principal; 2022-06-05)
DX: K85.80 Other acute pancreatitis without necrosis or infection (principal); I10 Essential (primary) hypertension; K76.0 Fatty (change of) liver, not elsewhere classified; E78.1 Pure hyperglyceridemia; F10.988 Alcohol use, unspecified with other alcohol-induced disorder; E11.9 Type 2 diabetes mellitus without complications; E78.5 Hyperlipidemia, unspecified; E66.9 Obesity, unspecified; F17.210 Nicotine dependence, cigarettes, uncomplicated; Z71.6 Tobacco abuse counseling; R01.1 Cardiac murmur, unspecified; Z20.822 Contact with and (suspected) exposure to COVID-19; E87.1 Hypo-osmolality and hyponatremia

== ENCOUNTER → 2022-08-22 | Outpatient (CLI) | payer OTHER ==
[~2022-08-22] MED LIST changes: +BLOO-76 MC; +FENO145T7 PO; +FISH1CAP26 PO; +GLOB31MI SC; +INSUDET SC; +INSUHUMDS SC; +LANC1MIS XX; +ULTI70PA2 XX
== END ==
LOC: M CARPUL 08:21
PROVIDERS: ATTEND Student in an Organized Health Care Education/Training Program
DX: I34.0 Nonrheumatic mitral (valve) insufficiency (principal)

== ENCOUNTER → 2022-09-17 | Outpatient (CLI) | payer OTHER ==
[2022-09-17 17:33] LABS: BLOOD UREA NITROGEN 13 MG/DL (7-18); CALCIUM LEVEL 9.6 MG/DL (8.5-10.1); CARBON DIOXIDE LEVEL 29 MEQ/L (21-32); CHLORIDE LEVEL 102 MEQ/L (98-107); CHOLESTEROL LEVEL 216 MG/DL (<200); CHOLESTEROL RISK RATIO 4.695 (<5); CREATININE FOR GFR 0.83 MG/DL (0.70-1.30); CREATININE, URINE 91.4 MG/DL; GLOMERULAR FILTRATION RATE > 60.0 (>60); GLUCOSE, FASTING 119 MG/DL (70-100); HDL CHOLESTEROL 46 MG/DL (>40); LDL CHOLESTEROL 140 MG/DL (<100); MALB URINE SIEMENS 19.1 MG/L; MAU/CREAT RATIO 20.8 MCG/MG (0.0-30.0); NON-HDL-C 170 MG/DL; POTASSIUM SERUM 4.4 MEQ/L (3.5-5.1); SODIUM LEVEL 137 MEQ/L (136-145); TRIGLYCERIDES LEVEL 148 MG/DL (<150)
[2022-09-17 23:03] LABS: HEMOGLOBIN A1c 6.2 %
== END ==
LOC: M PLALAB 11:46
PROVIDERS: ATTEND Student in an Organized Health Care Education/Training Program
DX: I15.9 Secondary hypertension, unspecified (principal); K76.0 Fatty (change of) liver, not elsewhere classified; E13.9 Other specified diabetes mellitus without complications; E78.2 Mixed hyperlipidemia

== ENCOUNTER → 2022-12-17 | Outpatient (CLI) | payer OTHER | LOC: M RAD 08:06 | PROVIDERS: ATTEND Student in an Organized Health Care Education/Training Program | DX: I15.9 Secondary hypertension, unspecified (principal); N28.1 Cyst of kidney, acquired ==